=== PATIENT | male | born 1950 | race Caucasian/White ===

== ENCOUNTER 2024-02-10 12:12 | Inpatient (IN) ==
--- NOTE | 2024-02-10 12:56 | Emergency Department Note ---
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 He notes today he was sitting on the couch and noticed that his right leg was cool, cold and painful. He notes intermittently with exertion he has worsening pain. He is a smoker and has done this for over 50 years. He denies any headache or change in vision. No chest pain or shortness of breath. No nausea, vomiting, or diarrhea. No dysuria, urgency, or frequency. No other exacerbating or remitting factors. ADDITIONAL HISTORY OBTAINED: Per HPI Chronic Medical/Social Conditions Affecting Care: Per HPI PAST MEDICAL HISTORY:See Below PAST SURGICAL HISTORY:See Below FAMILY HISTORY:See Below SOCIAL HISTORY:See Below HOME MEDICATIONS:See Below ALLERGIES:See Below VITALS:See Below PHYSICAL EXAMINATION: GENERAL: Sitting up in bed, alert, well appearing, well nourished, no distress, non-toxic EYE EXAM: normal conjunctiva. OROPHARYNX: no exudate, no erythema, lips, buccal mucosa, and tongue normal and mucous membranes are moist NECK: supple, no nuchal rigidity, no adenopathy, non-tender LUNGS: Clear to auscultation. Normal chest wall mechanics HEART: no murmurs, S1 normal and S2 normal ABDOMEN: abdomen soft, non-tender, normo-active bowel sounds, no masses, no rebound or guarding. UPPER EXTREMITIES: upper extremities are grossly normal. LOWER EXTREMITIES: Right lower extremity is pale, cold. Unable to appreciate DP or PT. Gross sensation is intact. Calves are equal bilateral NEURO EXAM: Normal sensorium, cranial nerves II-XII grossly intact, normal speech, no gross weakness of arms, no gross weakness of legs. MEDICAL DECISION MAKING: Patient is a 73-year-old male who presents the ER for right leg pain. His leg is cooler and paler than his left. Unable to appreciate DP and PT. Patient was sent emergently for a arterial ultrasound as well as a venous duplex. He has a popliteal artery occlusion. This was discussed with Aurea from vascular surgery. She agreed with heparin drip and bolus and admission to the hospitalist and they will evaluate the patient. Patient was given morphine. He was updated bedside. He was placed on the heparin drip bolus. He denied any bleeding risk factors. He was discussed with the hospitalist admitted for further workup Consults/Care Managements Discussions: Per [facility] Triage Nursing notes reviewed. Limited review of prior medical records performed Vital Signs: reviewed and remarkable for no significant abnormalities Differential diagnosis: DVT, musculoskeletal, infection, joint effusion, trauma, lymphedema, idiopathic, CHF, as well as other pathologies. ER treatment provided: See below Diagnostics interpreted by me include EKG and cardiac monitoring as listed below: -Cardiac Monitoring: An order was placed for continuous cardiac monitoring. The monitor shows a rate of 92 with sinus rhythm. -EC -Laboratory studies:Interpreted by me as stated above in MDM and shown below. Imaging studies: Xrays: As interpreted by me:none CTs show: none Arterial ultrasound shows a right popliteal artery occlusion DVT was Procedures:none Critical Care: I have personally spent 32 minutes of critical care time in the direct management of this patient. This includes bedside care, interpretation of diagnostic studies, and testing, discussion with consultants, patient, and family members, and other required patient management activities. This [] minutes is in excess of all separately billable procedures. Past Med/Surg History Medical History HLD (hyperlipidemia) HTN (hypertension) Prostate cancer Diagnosed 12/15/18 - [place] 3+4 Lyme arthritis of knee History of Lyme disease Osteoarthritis of left knee Tobacco use disorder Gastroesophageal reflux Surgical History History of cataract surgery 06/2018 Family History Mother , Passed age 52 in MVA No problems noted. Father , Passed age 68 of unknown No problems noted. Brother , Passed age 23 of MVA No problems noted. Brother No problems noted. Brother No problems noted. Brother No problems noted. Sister , Passed in 40's of complication from MVA No problems noted. Sister No problems noted. Sister No problems noted. Sister No problems noted. Sister No problems noted. Sister No problems noted. Son No problems noted. Son No problems noted. 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 Other Information That Helps Us Care for You: No Feels Safe at Home: Yes Safety Concerns: Feels Safe At This Time caffeine: Yes (30oz coffee/day ) during the past year weight has: remained stable Assistive Devices: Denture - Upper Allergies Allergies Allergy/AdvReac Type Severity Reaction Status Date / Time No Known Allergies Allergy Mild Verified 02/10/24 14:27 Home Meds Home Medications Medication Instructions Recorded Confirmed amlodipine 10 mg tablet 10 mg PO DAILY 12/02/21 02/10/24 losartan 50 mg tablet 100 mg PO DAILY 12/02/21 02/10/24 omeprazole 20 mg tablet,delayed 20 mg PO DAILY 12/02/21 02/10/24 release cholecalciferol (vitamin D3) 25 25 mcg PO DAILY 02/10/24 02/10/24 mcg (1,000 unit) chewable tablet (Vitamin D3) cyanocobalamin (vitamin B-12) 1,000 mcg PO DAILY 02/10/24 02/10/24 1,000 mcg tablet (Vitamin B-12) Results & Data (ED) Vital Signs Vital Signs - 24 hr 02/10/24 12:18 02/10/24 14:47 Temperature 36.5 C Temperature Source Temporal Artery Scan Pulse Rate 97 H Pulse Rate [Apical] 83 Pulse Rhythm Regular Respiratory Rate 20 18 Respiratory Effort / Characteristics Non-Labored Spontaneous Respiratory Depth Normal Blood Pressure 136/75 Blood Pressure [Right Arm] 154/84 H Blood Pressure Mean 95 Blood Pressure Mean [Right Arm] 107 Pulse Oximetry 97 94 Oxygen Delivery Method Room Air Sepsis Recent Fever Within 48 Hours No Sepsis New/Unexplained Change in Mental Status No Sepsis Action Taken by Nursing No Action Required Laboratory Data 02/10/24 12:50 02/10/24 12:50 Lab Results 02/10/24 02/10/24 Range/Units 12:50 13:56 WBC 9.32 (4.8-10.8) K/ul RBC 5.13 (4.70-6.10) M/uL Hgb 15.0 (14.0-18.0) g/dl Hct 44.4 (42.0-52.0) % MCV 86.5 (80.0-100.0) fL MCH 29.2 (25.0-34.0) pg MCHC 33.8 (32.0-36.0) g/dL RDW Std Deviation 42.8 (36.4-46.3) fL RDW Coeff of Kristen 13.6 (11.5-14.5) % Plt Count 271 (130-400) K/uL MPV 10.4 (9.4-12.4) fL Immature Gran % (Auto) 0.3 % Neut % (Auto) 65.9 % Lymph % (Auto) 23.5 % [place] % (Auto) 7.5 % Eos % (Auto) 1.6 % Baso % (Auto) 1.2 % Neut # (Auto) 6.14 (1.40-6.50) K/uL Lymph # (Auto) 2.19 (1.20-3.40) K/uL [place] # (Auto) 0.70 H (0.11-0.59) K/uL Eos # (Auto) 0.15 (0.00-0.50) K/uL Baso # (Auto) 0.11 (0.00-0.20) K/uL Immature Gran # (Auto) 0.03 (0.01-0.20) K/uL PT 11.9 (9.0-12.0) Seconds INR 1.1 (0.9-1.1) Sodium 139 (136-145) mmol/L Potassium 4.4 (3.5-5.1) mmol/L Chloride 106 (98-107) mmol/L Carbon Dioxide 29 (21-32) mmol/L Anion Gap 4 (3-11) BUN 23 (6-23) mg/dl Creatinine 1.03 (0.6-1.4) mg/dl Est Cr Clr Drug Dosing 65.1 ml/min Est GFR ( Amer) 84.3 ml/min Est GFR (Non-Af Amer) 72.7 ml/min BUN/Creatinine Ratio 22.3 H (10-20) Glucose 98 (70-99(Fasting)) mg/dl Calcium 9.7 (8.6-10.3) mg/dl Total Bilirubin 0.8 (0.2-1.0) mg/dl AST 14 (13-39) U/L ALT 13 (7-52) U/L Alkaline Phosphatase 103 (34-104) U/L Total Protein 7.4 (6.0-8.3) gm/dl Albumin 4.3 (3.4-5.0) gm/dl Globulin 3.1 (2.5-4.0) gm/dl Albumin/Globulin Ratio 1.4 (0.9-2) Administered Medications Atorvastatin Calcium (Atorvastatin 40 Mg Tab) 40 mg PO QAM [facility] Stop: 03/11/24 15:29 Last Admin: 02/10/24 17:12 Dose: 40 mg Documented By: DTT Heparin Sodium/Dextrose (Heparin Sodium/Dextrose) 25,000 units in 500 mls @ 25 mls/hr IV .Q20H JHONNY; Protocol Stop: 03/11/24 14:29 Last Admin: 02/10/24 15:44 Dose: 1,250 units/hr, 25 mls/hr Documented By: ALISON Co-signed By: JAMES Discontinued Medications Aspirin (Aspirin 81 Mg Ectab) 81 mg PO NOW STA Stop: 02/10/24 15:46 Last Admin: 02/10/24 17:12 Dose: 81 mg Documented By: DTT Heparin Sodium (Porcine) (Heparin Sod (Porcine) 1000 Unit/Ml) 6,000 units IV NOW ONE Stop: 02/10/24 14:46 Last Admin: 02/10/24 15:44 Dose: 6,000 units Documented By: ALISON Co-signed By: JAMES Morphine Sulfate (Morphine Sulfate 4 Mg/Ml 1 Ml Carp\Vial) 4 mg IV NOW STA Stop: 02/10/24 14:15 Last Admin: 02/10/24 15:04 Dose: Not Given Documented By: NRB Imaging Data Radiologist's Impression: Duplex Scan Lower Extremity Artery 02/10/24 12:48 US arterial duplex LE RT HISTORY: 73 years-old Male ? clot peripheral arterial disease with lower extremity pain COMPARISON: Duplex venous Doppler study of same day TECHNIQUE: Multiple real-time sonographic images of the right lower remedy arterial structures were obtained assessing grayscale appearance, color and spectral flow FINDINGS: There is at least moderate atherosclerosis. Patent mostly biphasic waveforms of the thigh. There is occlusion of the mid to distal aspect of the popliteal artery. There is monophasic waveforms within the patent posterior tibial, anterior tibial, peroneal and dorsalis pedis arteries with areas of spectral broadening and diminished flow with peak systolic velocities in the peroneal artery measuring 7 cm/s. IMPRESSION: 1. Atherosclerosis with age-indeterminate occlusion of the right popliteal artery. 2. Blunted monophasic waveforms within the lower leg arteries. ACT 112: Negative or not required by law. The above report was generated using voice recognition software. It may contain grammatical, syntax or spelling errors. Electronically signed by: James March M.D. 02/10/2024 1:56 PM Venous Doppler Study 02/10/24 12:48 RIGHT LOWER EXTREMITY VENOUS DOPPLER HISTORY: Right leg pain. COMPARISON STUDY: None. FINDINGS: There is normal compressibility, flow, and augmentation within the right lower extremity deep venous system. IMPRESSION: No DVT within the right lower extremity ACT 112: Negative or not required by law. Electronically signed by: Anil Medellin M.D. 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
[2024-02-10 13:17] LABS: Basophils # (auto) 0.11 K/uL (0.00-0.20); Basophils % (auto) 1.2 %; Eosinophils # (auto) 0.15 K/uL (0.00-0.50); Eosinophils % (auto) 1.6 %; Hematocrit (blood only) 44.4 % (42.0-52.0); Immature Granulocytes # (auto) 0.03 K/uL (0.01-0.20); Immature Granulocytes % (auto) 0.3 %; Lymphocytes # (auto) 2.19 K/uL (1.20-3.40); Lymphocytes % (auto) 23.5 %; Mean Corpuscular Hemoglobin 29.2 pg (25.0-34.0); Mean Corpuscular Hgb Conc 33.8 g/dL (32.0-36.0); Mean Corpuscular Volume 86.5 fL (80.0-100.0); Mean Platelet Volume 10.4 fL (9.4-12.4); Monocytes % (auto) 7.5 %; Neutrophils # (auto) 6.14 K/uL (1.40-6.50); Neutrophils % (auto) 65.9 %; Platelet Count 271 K/uL (130-400); RDW Coefficient of Variation 13.6 % (11.5-14.5); RDW Standard Deviation 42.8 fL (36.4-46.3); Red Blood Count 5.13 M/uL (4.70-6.10); White Blood Count 9.32 K/ul (4.8-10.8)
[2024-02-10 13:46] LABS: Albumin Globulin Ratio 1.4 (0.9-2); Albumin Level 4.3 gm/dl (3.4-5.0); BUN Creatinine Ratio 22.3 (10-20); Bilirubin,Total 0.8 mg/dl (0.2-1.0); Calcium 9.7 mg/dl (8.6-10.3); Creatinine Clr Calc Pharmacy 65.1 ml/min; Est GFR (African American) 84.3 ml/min; Est GFR (Non-African American) 72.7 ml/min; Globulin 3.1 gm/dl (2.5-4.0); Potassium 4.4 mmol/L (3.5-5.1); Total Protein 7.4 gm/dl (6.0-8.3)
--- NOTE | 2024-02-10 13:49 | Ultrasound Report ---
RIGHT LOWER EXTREMITY VENOUS DOPPLER HISTORY: Right leg pain. COMPARISON STUDY: None. FINDINGS: There is normal compressibility, flow, and augmentation within the right lower extremity de ep venous system. IMPRESSION: No DVT within the right lower extremity ACT 112: Negative or not required by law. Electronically signed by: Anil Medellin M.D. 02/10/2024 1:48 PM
--- NOTE | 2024-02-10 13:58 | Ultrasound Report ---
US arterial duplex LE RT HISTORY: 73 years-old Male ? clot peripheral arterial disease with lower extremity pain COMPARISON: Duplex venous Doppler study of same day TECHNIQUE: Multiple real-time sonographic images of the right lower remedy arterial structures were o btained assessing grayscale appearance, color and spectral flow FINDINGS: There is at least moderate atherosclerosis. Patent mostly biphasic waveforms of the thigh. There is o cclusion of the mid to distal aspect of the popliteal artery. There is monophasic waveforms within th e patent posterior tibial, anterior tibial, peroneal and dorsalis pedis arteries with areas of spectr al broadening and diminished flow with peak systolic velocities in the peroneal artery measuring 7 cm /s. IMPRESSION: 1. Atherosclerosis with age-indeterminate occlusion of the right popliteal artery. 2. Blunted monophasic waveforms within the lower leg arteries. ACT 112: Negative or not required by law. The above report was generated using voice recognition software. It may contain grammatical, syntax o r spelling errors. Electronically signed by: James March M.D. 02/10/2024 1:56 PM
[2024-02-10] MEDS ORDERED: Heparin IV Adult Wt-Based Standard w/ INITIAL Bolus Protocol IV STA (14:13)
[2024-02-10] MEDS ORDERED: HEPARIN SOD (PORCINE) 1000 UNIT/ML IV ONE (14:29)
[2024-02-10 14:44] LABS: INR 1.1 (0.9-1.1); Prothrombin Time 11.9 Seconds (9.0-12.0)
[2024-02-10] MEDS ORDERED: POLYETHYLENE (MIRALAX) 17 GM PACK PO PRN (14:53)
[2024-02-10] MEDS ORDERED: ALUMINUM/MAGNESIUM SUSP 30 ML UDC PO PRN (14:53)
[2024-02-10] MEDS ORDERED: ONDANSETRON INJ 2 MG/ML 2 ML VIAL IV PRN (14:53)
[2024-02-10] MEDS ORDERED: ACETAMINOPHEN 325 MG TAB PO PRN (14:53)
[2024-02-10] MEDS ORDERED: MAGNESIUM HYDROXIDE SUSP 30 ML UDC PO PRN (14:53)
[2024-02-10] MEDS: MoRPHine SULFATE 4 MG/ML 1 ML CARP\\VIAL IV STA (15:04)
--- NOTE | 2024-02-10 15:05 | History & Physical Report ---
Date of Service February 10, 2024 Assessment & Plan (1) HTN (hypertension): (2) HLD (hyperlipidemia): (3) Prostate cancer: (4) Tobacco use disorder: (5) Gastroesophageal reflux: Plan Mr. Heard is a 73 year old male that presents to the ED with R leg pain that started on Saturday. He reportedly was having pallor and coolness in the right lower extremity. Today he has complaints including neuropathy as well. No ambulation difficulty. Reports tightness in the back of his right calf. Does not take any antilipid lowering agents. Is compliant with his blood pressure medications. He has never been diagnosed with atherosclerosis before. He is generally otherwise healthy. No recent surgeries. No leukocytosis, no erythema or warmth at site. Reports neuropathic symptoms on his right foot. Pt smokes 1/2 ppd cigarettes. Duplex scan of the lower arteries indicated Atherosclerosis with age- indeterminate occlusion of the right popliteal artery and blunted monophasic waveforms within the lower leg arteries. Venous duplex US was negative for DVT. Pt will be admitted for further evaluation and management of his PAD with popliteal arterial occlusion. Heparin gtt with bolus initiated. Will add Lipitor and a daily baby aspirin, and will check fasting lipid panel in AM along with NPO after MN. PAD: Arterial Duplex Scan revealed Atherosclerosis with age-indeterminate occlusion of the right popliteal artery. Blunted monophasic waveforms within the lower leg arteries. Venous Duplex scan negative for DVT Heparin gtt with bolus started in ED; continue pending vascular consultation (+) neuropathy of R foot Venous Duplex scan Negative No leukocytosis, no erythema, no warmth, no swelling (+) pedal pulse; cool to touch; nursing to obtain doppler Ok for diet now, NPO after midnight No previously on a statin; started on Lipitor 40 mg and adjust based on lipid panel in AM Started on daily baby ASA for anti-plt coverage Vascular Surgery consulted HTN: pHTN: Chronic Takes losartan and amlodipine; continue Most recent ECHO 01/02/24: EF 60-64%, moderate TR, moderate pHTN, LV wall motion normal. COPD: Tobacco use: Chronic Smoking 1/2 pack cigarettes per day smoking cessation recommended H/O Prostate CA: Chronic Dx: 2019 S/P Lupron therapy x 18 months + Radx Follows with Urology; no prostatectomy Last PSA 0.18 Disposition: PCP: Dr. Doberstein Code Status: Full Code VTE Prophylaxis: On Heparin gtt I spent a total of 88 minutes coordinating, documenting, and providing care for this patient excluding time spent in the performance of separately billed services. All of the aforementioned completed while collaborating with the assigned attending physician for a full treatment plan. Please see their addendum for further details. History of Present Illness Chief Complaint: R leg pain Primary Care Provider: Elmer Durbin MD Mr. Heard is a 73 year old male that presents to the ED with R leg pain that started on Saturday. He reportedly was having pallor and coolness in the right lower extremity. Today he has complaints including neuropathy as well. No ambulation difficulty. Reports tightness in the back of his right calf. Does not take any antilipid lowering agents. Is compliant with his blood pressure medications. He has never been diagnosed with atherosclerosis before. PMH includes: HTN, COPD, prostate CA, and GERD. He is generally otherwise healthy. No recent surgeries. No leukocytosis, no erythema or warmth at site. Reports neuropathic symptoms on his right foot. Pt smokes 1/2 ppd cigarettes. Smoking cessation recommended. No alcohol or recreational drug concerns. Duplex scan of the lower arteries indicated Atherosclerosis with age- indeterminate occlusion of the right popliteal artery and blunted monophasic waveforms within the lower leg arteries. Venous duplex US was negative for DVT. ED physician reached out to vascular surgery who suggested a Heparin gtt with bolus that was initiated in the ED. Pt denies CAM, dizziness, lightheadedness, chest pain, SOB, abdominal pain or tenderness, visual or auditory changes, N/V/D, recent falls or trauma. Pt will be admitted for further evaluation and management of his PAD with popliteal arterial occlusion. Will add Lipitor and a daily baby aspirin, and will check fasting lipid panel in AM along with NPO after MN. Allergies Allergy/AdvReac Type Severity Reaction Status Date / Time No Known Allergies Allergy Mild Verified 02/10/24 14:27 Home Medications Medication Instructions Recorded Confirmed Type amlodipine 10 mg tablet 10 mg PO DAILY 12/02/21 02/10/24 History losartan 50 mg tablet 100 mg PO DAILY 12/02/21 02/10/24 History omeprazole 20 mg tablet,delayed 20 mg PO DAILY 12/02/21 02/10/24 History release cholecalciferol (vitamin D3) 25 25 mcg PO DAILY 02/10/24 02/10/24 History mcg (1,000 unit) chewable tablet (Vitamin D3) cyanocobalamin (vitamin B-12) 1,000 mcg PO DAILY 02/10/24 02/10/24 History 1,000 mcg tablet (Vitamin B-12) Past Med/Surg History Medical History HLD (hyperlipidemia) HTN (hypertension) Prostate cancer Diagnosed 12/15/18 - [facility] 3+4 Lyme arthritis of knee History of Lyme disease Osteoarthritis of left knee Tobacco use disorder Gastroesophageal reflux Surgical History History of cataract surgery 06/2018 Family History Mother , Passed age 52 in MVA No problems noted. Father , Passed age 68 of unknown No problems noted. Brother , Passed age 23 of MVA No problems noted. Brother No problems noted. Brother No problems noted. Brother No problems noted. Sister , Passed in 40's of complication from MVA No problems noted. Sister No problems noted. Sister No problems noted. Sister No problems noted. Sister No problems noted. Sister No problems noted. Son No problems noted. Son No problems noted. Other No pertinent family history Social History Smoking Status: Current every day smoker Tobacco Type: Cigarettes Cigarettes Per Day: 1 pack/day; Do You Dip or Chew Tobacco: No; Hx Alcohol Use: No Hx Substance Use: No Preferred Language: Malaysian Visual Impairment: No Limitations Hearing Ability: Hard of Hearing Beliefs That Will Affect Care: None marital status: Single Current Living Situation: Alone current occupational status: retired current occupation: Retired [employer] Feels Safe at Home: Yes caffeine: Yes (30oz coffee/day ) during the past year weight has: remained stable Review of Systems Review of Systems: Neuro: (-) Falls, trauma, slurred speech HEENT: (-) CAM, dizziness, dysphagia, visual or auditory changes CV: (-) CP, palpitations, swelling Resp: (-) SOB GI: (-) appetite changes, N/V/D, bowel changes : (-) urinary changes Skin: (-) rashes (+) R posterior calf pain Psych: (-) anxiety, depression Physical Exam Physical Exam: Neuro: AAOx4. HEENT: head normocephalic, moist mucus membranes CV: RLE non-palpable pedal pulse Resp: on RA. Skin: pallor. Psych: euthymic mood See Dr. Bullard's addendum for more in depth Physical Examination findings Results & Data Results & Data Vital Signs (Past 12 Hours) Vital Signs Temp Pulse Pulse Resp BP BP Pulse Ox 02/10/24 14:47 83 18 154/84 H 94 02/10/24 12:18 36.5 C 97 H 20 136/75 97 O2 Del Method 02/10/24 14:47 02/10/24 12:18 Room Air Laboratory Results Short CBC 02/10/24 Range/Units 12:50 WBC 9.32 (4.8-10.8) K/ul Hgb 15.0 (14.0-18.0) g/dl Hct 44.4 (42.0-52.0) % Plt Count 271 (130-400) K/uL BMP 02/10/24 12:50 Sodium 139 Potassium 4.4 Chloride 106 Carbon Dioxide 29 BUN 23 Creatinine 1.03 Glucose 98 Calcium 9.7 Liver Function 02/10/24 Range/Units 12:50 Total Bilirubin 0.8 (0.2-1.0) mg/dl AST 14 (13-39) U/L ALT 13 (7-52) U/L Alkaline Phosphatase 103 (34-104) U/L Albumin 4.3 (3.4-5.0) gm/dl Diagnostic Findings Duplex Scan Lower Extremity Artery 02/10/24 12:48 US arterial duplex LE RT HISTORY: 73 years-old Male ? clot peripheral arterial disease with lower extremity pain COMPARISON: Duplex venous Doppler study of same day TECHNIQUE: Multiple real-time sonographic images of the right lower remedy arterial structures were obtained assessing grayscale appearance, color and spectral flow FINDINGS: There is at least moderate atherosclerosis. Patent mostly biphasic waveforms of the thigh. There is occlusion of the mid to distal aspect of the popliteal artery. There is monophasic waveforms within the patent posterior tibial, anterior tibial, peroneal and dorsalis pedis arteries with areas of spectral broadening and diminished flow with peak systolic velocities in the peroneal artery measuring 7 cm/s. IMPRESSION: 1. Atherosclerosis with age-indeterminate occlusion of the right popliteal artery. 2. Blunted monophasic waveforms within the lower leg arteries. ACT 112: Negative or not required by law. The above report was generated using voice recognition software. It may contain grammatical, syntax or spelling errors. Electronically signed by: James Marhc M.D. 02/10/2024 1:56 PM Venous Doppler Study 02/10/24 12:48 RIGHT LOWER EXTREMITY VENOUS DOPPLER HISTORY: Right leg pain. COMPARISON STUDY: None. FINDINGS: There is normal compressibility, flow, and augmentation within the right lower extremity deep venous system. IMPRESSION: No DVT within the right lower extremity ACT 112: Negative or not required by law. Electronically signed by: Anil Medellin M.D. 02/10/2024 1:48 PM Code Status & VTE Plan Code Status Full Code in the event of cardiac or respiratory arrest VTE Prophylaxis Plan VTE Prophylaxis will be ordered: Yes Supervising Physician Co-Signing Physician Notes Patient seen and examined independently. Discussed with above provider Patient is a 73-year-old male with past medical history of hypertension, chronic tobacco use, prostate cancer status postradiation who presents with pain in his right foot. No history of previous PAD or CAD. CBC, CMP unremarkable On physical examination; Constitutional: Alert oriented x 3; not in distress. Respiratory: normal respiratory effort, lungs clear to auscultation, no wheeze, rales, rhonchi. Normal insp/exp effort, no accessory muscle use Cardiovascular: RRR, no murmur, no edema Vessels: no JVD or carotid bruit Chest: normal inspection of chest Abdomen: normal bowel sounds, soft, nontender, no hepatosplenomegaly Musculoskeletal: no cyanosis or clubbing, extremities motor strength 5/5. Dorsalis pedis on the left palpable; unable to appreciate dorsalis pedis pulse on her right foot. No color changes. Skin: no rashes, warm and dry normal turgor Neurologic: PERRL, EOMI, accommodation nl, no face palsy, no dysarthria CN's II- XI intact bilaterally and moves all extremities Psychiatric: A+Ox3, euthymic affect Assessment/plan Peripheral artery disease Atherosclerosis with age-indeterminate occlusion of the right popliteal artery. Risk factor include hypertension, tobacco use Duplex negative for DVT Duplex scan of artery shows atherosclerosis indeterminant occlusion of right popliteal artery ED physician discussed with Dr. Fox from vascular surgery; recommend heparin. Possible intervention tomorrow a.m. Started on aspirin, statin Chronic conditions; continue home meds for hypertension I have reviewed the advanced practitioner's documentation, and I agree with, and take responsibility for the plan of care I spent a total of 30 minutes coordinating, documenting, and providing care for this patient excluding time spent in the performance of separately billed services. All of the aforementioned completed while collaborating with the assigned advanced practitioner for a full treatment plan Please note the above document was generated using voice recognition software. It may contain grammatical, syntax or spelling errors. Any formal questions or concerns about the content, text or information contained within the body of this dictation should be directly addressed to the provider for clarification
[2024-02-10] MEDS: HEPARIN SODIUM/DEXTROSE 25,000 UNITS/500 ML BAG IV SCH (15:44)
[2024-02-10] MEDS: HEPARIN SOD (PORCINE) 1000 UNIT/ML IV ONE (15:44)
[2024-02-10] MEDS: ATORVASTATIN 40 MG TAB PO SCH (17:12)
[2024-02-10] MEDS: ASPIRIN 81 MG ECTAB PO STA (17:12)
[2024-02-10 22:43] LABS: ANTI-Xa, UFH(UnfractionatedHep 0.93 IU/ml (0.3-0.7)
--- OUTSIDE RECORDS SUMMARY | 2024-02-10 22:55 | External Medical Summary ---
Author Name Unknown Address Unknown Organization [id number] [place] [address] Laboratory Report Ordering Provider Test Date Status AVELINO DIALLO 11/01/2023 10:20:22 Final Observation Date Value Abnormality Reference (Units ) Status Magnesium 11/01/2023 10:20:22 1.5 1.5-2.6 (m g/dL) Final Performing Location [facility] [place] [place] [address]
--- OUTSIDE RECORDS SUMMARY | 2024-02-10 22:55 | External Medical Summary | Summary of Care ---
Author Name Unknown Organization [facility] Address [address] [place] [address] Phone [phone] Care Team Providers Care Sole Leveler Name Role Phone Elmer Durbin MD Primary Care Provider + Reason for Visit * Reason Onset Date Comments Test Results Lab 11/04/2023 Encounter Details Date Type Department Care Team (Late st Contact Info) Description 11/04/2023 Telephone General Internal Medicine [facility] [place] [address] [facility] [place] [address] [facility] [address] [facility] [id number] Test Results Lab Allergies No known active allergiesdocumented as of this encounter (statuses as of 11/04/2023) Medications Medication Sig Dispensed Refills Start Date End Date Status omeprazole (PRILOSEC) 20 MG CPDR Take 1 Capsule by mouth in the morning. 0 Active Zoster Vac Recomb Adjuvanted 50 MCG/0.5ML Intramuscular Suspension Reconstituted (Shingrix)Indications: Need for shingles vaccine Inject 0.5 mL into a large muscle now and repeat dose in 60 to 180 days 1 Each 1 03/30/2022 Active Losartan Potassium 100 MG Oral Tablet (Cozaar) Take 1 Tablet by mouth in the morning. 90 Tablet 3 12/04/2022 Active D3 5000 125 MCG (5000 UT) Oral Capsule (Cholecalciferol)Indic ations:Vitamin D insufficiency Take 1 Capsule by mouth in the morning. 90 Capsule 0 12/04/2022 Active Vitamin B12 1000 MCG Oral Tablet Extended Release Take 1,000 mcg by mouth in the morning. 0 Active Magnesium 400 MG Oral Tablet Take 400 mg by mouth. 0 Active amLODIPine Besylate 10 MG Oral Tablet (Norvasc)Indications:H ypertension goal BP (blood pressure) < 140/90 TAKE 1 TABLET BY MOUTH EVERY MORNING 90 Tablet 3 06/03/2023 Active Rosuvastatin Calcium 5 MG Oral Tablet (Crestor)Indications:M ixed hyperlipidemia TAKE 1 TABLET BY MOUTH EVERY MORNING 90 Tablet 3 06/03/2023 Active documented as of this encounter (statuses as of 11/04/2023) Active Problems Problem Noted Date Diagnosed Date Prediabetes 11/03/2023 Gallstone 04/17/2023 Nonrheumatic tricuspid valve regurgitation 10/01 COPD, mild 03/30/2022 PHT (pulmonary hypertension) 10/06/2021 Vitamin D insufficiency 03/26/2021 Radiation cystitis 12/27/2020 Mixed hyperlipidemia 10/28/2020 Lung nodule 10/27/2020 Hypertension goal BP (blood pressure) < 140/90 0 04/29/2019 Prostate cancer 02/25/2019 History of Lyme disease 05/30/2018 Osteoarthritis of left knee 04/01/2018 Gastroesophageal reflux disease without esophagi tis 03/31/2018 Tobacco use disorder 03/31/2018 documented as of this encounter (statuses as of 11/04/2023) Resolved Problems Problem Noted Date Diagnosed Date Resolved Date Centrilobular emphysema 10/06/202110/21 Lyme arthritis of knee 06/04/201802/25 documented as of this encounter (statuses as of 11/04/2023) Immunizations Name Administration Dates Next Due Covid-19 Ad26, Single Dose (Joo/J&J) 021 Pneumococcal Conjugate Vacc, 13 Valent (Prevnar) 05/30/2018 TDAP (age 11 and older)(Adacel) 10/01/2006 documented as of this encounter Social History Tobacco Use Types Packs/Day Years Used Date Smoking Tobacco: Every Day Cigarettes 0.8 47 Smokeless Tobacco: Never Alcohol Use Standard Drinks/Week Comments No 0 (1 standard drink = 0.6 oz pur e alcohol) Quit in August of 2008 PHQ-2 Answer Date Recorded PHQ Adult Total Score 0 11/01/2023 Hunger Vital Sign Answer Date Recorded Within the past 12 months, y ou worried that your food would run out before you got the money to buy more. Never true 10/01/20 22 Within the past 12 months, t he food you bought just didn't last and you didn't have money to get more. Never true 10/01/2022 Sex and Gender Information Value Date Recorded Sex Assigned at Male 02/25/2019 11:09 AM EDT Gender Identity Male 02/25/2019 11:09 AM EDT Sexual Orientation Straight 02/25/2019 11 :09 AM EDT Job Start Date Occupation Industry Not on file Not on file Not on file documented as of this encounter Miscellaneous Notes * Telephone Encounter - Esperanza Eagle LPN - 11/04/2023 10:25 AM EST Patient aware and verbalized understanding, will consider B12 injections after labs in 3 months. Patient states that he is NOT taking vitamin D3 and will go to the store today and start taking, will wait to increase dose after future lab work as well. Esperanza Eagle LPN * Telephone Encounter - Esperanza Eagle LPN - 11/04/2023 10:20 AM EST ----- Message from Elmer Durbin MD sent at 11/03/2023 12:36 PM EST ----- Vit d is very low, please make sure he is taking 5000 IU vit d3 as on med list, this is very important!. If so, switch to 50K units weekly instead, if not resume brittany. This is otc, add to med list once aware. Recheck labs 3 months to follow. Vit b12 normal but low end, please make sure taking vit b12 as on med list, if so, would consider IM injections instead Pth is up, but wonder if from low vit d, pls do as above, will recheck labs 3 months A1c shows pre-DM, limit sweets, breads, pastas, excessive juices, soda to help prevent DM down the line Psa stable pls follow up with urology for h/o prostate cancer! documented in this encounter Plan of Treatment Upcoming Encounters Date Type Department Care Team (Late st Contact Info) Description 01/02/2024 7:15 AM EDT Cardiac Studies Cardiac Studies, [facility] [address] [facility] [place] [address] 05/08/2024 8:40 AM EDT Office Visit General Internal Medicine [facility] [address] [facility] [place] [address] Elmer Durbin MD [address] [facility] [place] [address] 05/20/2024 8:45 AM EDT Office Visit Urology, [facility] [address] [facility] [place] [address] Patric Hernandez MD [address] [address] [place] [address] Health Maintenance Due Date Last Done Comments Cologuard 1997 Colonoscopy 1997 Colorectal Cancer Screening 1997 Fecal Occult Blood Test 1997 Sigmoidoscopy 1997 Zoster Vaccines (1 of 2) 2002 DTaP,Tdap,and Td Vaccines (2 - Td or Tdap) 10/01/2016 10/01/2006 Pneumococcal Vaccine: 65+ Years (2 - PPSV23 or PCV20) 07/25/2018 05/30/2018 *COPD SEVERITY VERIFIED BY PFT 10/10/2021 DISCUSS TOBACCO CESSATION (REFER TO SMARTSET #3291) 10/06/2022 10/06/2021 COVID-19 Vaccine (2 - season) 2023 03/08/2021 Influenza Vaccine (FLU shot) (#1) 2023 Depression Screening 11/01/2024 11/01/2023 GFR 11/01/2024 11/01/2023, 0612/2022, 10/01/2022, Additional history exists HbA1c 11/01/2024 11/01/2023 O2 ASSESSMENT COMPLETED IN PAST YEAR FOR COPD 11/01/2024 11/01/2023 Albumin/Creatinine Ratio 10/01/2025 10/01/2022, 05/21 Lipid Panel 04/02/2028 04/02/2023, 03/22, 01/25/2021, Additional history exists AAA Screening Completed 04/03/2022 Alpha-1 Antitrypsin Completed 04/03/2022, GARDASIL-HPV IMMUNIZATION SERIES Aged Out No longer eligible based on patient's age to complete this topic Hepatitis B Aged Out No longer eligi ble based on patient's age to complete this topic MENINGOCOCCAL (MENACTRA/MENVEO) Aged Out No longer eligible based on patient's age to complete this topic documented as of this encounter Medical Devices Implanted Type Area Patient Admitting Representative Device Identifier Shelf Expiration Date Model / Serial / Lot Lens Intraoc 23.5 - [id number] - [id number] Implanted:Qty: 1 on 06/19/2018 by Bennett Caro MD at OR [facility] Right: Eye [employer] 11/20/2022 [id number] / [id number] / [id number] Lens Intraoc 23.5 - [id number] - [id number] Implanted:Qty: 1 on 07/01/2018 by Bennett Caro MD at OR [facility] Left: Eye [employer] 12/18/2022 [id number] / [id number] / [id number] documented as of this encounter Advance Directives Latest Code Status on File Code Status Date Activated Date Inactivated Comments Full Code 07/01/2018 10:24 AM 07/01/2018 4:41 PM This order reflects the patients wishes and were consensually agreed upon. Code Status History Code Status Date Activated Date Inactivated Comments Full Code 06/19/2018 10:10 AM 06/19/2018 4:18 PM This order reflects the patients wishes and were consensually agreed upon. Care Teams Sole Leveler Relationship Specialty Start Date End Date Elmer Durbin MD [address] [place] [address], [place] [address] PCP - General Internal Medicine 12/15/18 documented as of this encounter
--- OUTSIDE RECORDS SUMMARY | 2024-02-10 22:55 | External Medical Summary | Summary of Care ---
Author Name Unknown Organization [facility] Address [address] [place] [address] Phone [phone] Care Team Providers Care Molding And Trim Installer Name Role Phone Elmer Durbin MD Primary Care Provider + Reason for Visit * Reason Onset Date Comments Advice 01/10/2024 Encounter Details Date Type Department Care Team (Late st Contact Info) Description 01/10/2024 Telephone Access Center, [place] [address] [facility] *DO NOT REMOVE THIS DEPARTMENT* [place] [address] Services, Scheduling [address] [place] [address] Advice Allergies No known active allergiesdocumented as of this encounter (statuses as of 01/10/2024) Medications Medication Sig Dispensed Refills Start Date End Date Status omeprazole (PRILOSEC) 20 MG CPDR Take 1 Capsule by mouth in the morning. 0 Active Zoster Vac Recomb Adjuvanted 50 MCG/0.5ML Intramuscular Suspension Reconstituted (Shingrix)Indications: Need for shingles vaccine Inject 0.5 mL into a large muscle now and repeat dose in 60 to 180 days 1 Each 1 03/30/2022 Active D3 5000 125 MCG (5000 UT) [...] EVERY MORNING 90 Tablet 3 06/03/2023 Active Losartan Potassium 100 MG Oral Tablet (Cozaar) TAKE ONE TABLET BY MOUTH IN THE MORNING 90 Tablet 3 11/25/2023 Active documented as of this encounter (statuses as of 01/10/2024) Active Problems Problem Noted Date Diagnosed Date COPD, group A, by GOLD 2017 classification 12/02 Overview: Per COPD GOLD Classification Prediabetes 11/03/2023 Gallstone 04/17/2023 Nonrheumatic tricuspid valve regurgitation 10/01 PHT (pulmonary hypertension) 10/06/2021 Vitamin D insufficiency 03/26/2021 Radiation cystitis 12/27/2020 Mixed hyperlipidemia 10/28/2020 Lung nodule 10/27/2020 Hypertension goal BP (blood pressure) < 140/90 0 04/29/2019 Prostate cancer 02/25/2019 History of Lyme disease 05/30/2018 Osteoarthritis of left knee 04/01/2018 Gastroesophageal reflux disease without esophagi tis 03/31/2018 Tobacco use disorder 03/31/2018 documented as of this encounter (statuses as of 01/10/2024) Resolved Problems Problem Noted Date Diagnosed Date Resolved Date COPD, mild 03/30/2022 12/05/2023 Overview: Per COPD GOLD Classification Centrilobular emphysema 10/06/202110/21 Lyme arthritis of knee 06/04/201802/25 documented as of this encounter (statuses as of 01/10/2024) Immunizations Name Administration Dates Next Due Covid-19 [...] money to buy more. Never true 10/01/20 Within the past 12 months, t he [...] encounter Miscellaneous Notes * Telephone Encounter - Ambreen Mccormick OSA - 01/10/2024 10:29 AM EDT Possible Lung Nodule. Please advise. documented in this encounter Plan of Treatment Upcoming Encounters Date Type Department Care Team (Late st Contact Info) Description 05/08/2024 8:40 AM EDT Office Visit General Internal Medicine [facility] [address] [facility] [place] [address] Elmer Durbin MD [address] [facility] [place] [address] 05/20/2024 8:45 AM EDT Office Visit Urology, [facility] [address] [facility] [place] [address] Patric Hernandez MD 27 [facility] [address] [place] [address] Health Maintenance Due Date Last Done Comments Cologuard 1997 Colonoscopy 1997 Colorectal Cancer Screening 1997 Fecal Occult Blood Test 1997 Sigmoidoscopy 1997 Zoster Vaccines (1 of 2) 2002 DTaP,Tdap,and Td Vaccines (2 - Td or Tdap) 10/01/2016 10/01/2006 Pneumococcal Vaccine: 65+ Years (2 of 2 - PPSV23 or PCV20) 07/25/2018 05/30/2018 *COPD SEVERITY VERIFIED BY PFT 10/10/2021 DISCUSS TOBACCO CESSATION (REFER TO SMARTSET #[id number]) 10/06/2022 10/06/2021 COVID-19 Vaccine (2 - season) 2023 03/08/2021 Influenza Vaccine (FLU shot) (#1) 2023 Depression Screening 11/01/2024 11/01/2023 GFR 11/01/2024 11/01/2023, 03/21, 10/01/2022, Additional history exists HbA1c 11/01/2024 11/01/2023 [...] this encounter Medical Devices Implanted Type Area Pecan Mallow Dipper Device Identifier Shelf Expiration Date Model / Serial / Lot Lens Intraoc 23.5 - [id number] - [id number] Implanted:Qty: 1 on 06/19/2018 by Bennett Caro MD at OR [facility] Right: Eye [employer] 11/20/2022 [id number] / [id number] / [id number] Lens Intraoc 23.5 - [id number] - [id number] Implanted:Qty: 1 on 07/01/2018 by Bennett Caro MD at OR [facility] Left: Eye [employer] 12/18/2022 [id number] / [id number] / [id number] documented as of this encounter Advance Directives [...] and were consensually agreed upon. Care Teams Molding And Trim Installer Relationship Specialty Start Date End Date Elmer Durbin MD [address] [place] [address] PCP - General Internal Medicine 12/15/18 documented as of this encounter
--- OUTSIDE RECORDS SUMMARY | 2024-02-10 22:55 | External Medical Summary ---
Author Name Unknown Address Unknown Organization [id number]:[facility] [place] [address] Laboratory Report Ordering Provider Test Date Status AVELINO DIALLO 11/01/2023 10:20:22 Final Observation Date Value Abnormality Reference (Units ) Status Albumin 11/01/2023 10:20:22 4.3 3.8-5.0 (g/dL) Final AST (Aspartate aminotransferase) 11/01/2023 10:20:22 18 10-50 (U/L) Final Alk Phos 11/01/2023 10:20:22 125 35-130 (U/L) Final ALT (Alanine aminotransferase) 11/01/2023 10:20:22 16 10-50 (U/L) Final Bilirubin, Total 11/01/2023 10:20:22 0.9 <=1.2 (mg/dL) Final Bilirubin, Direct 11/01/2023 10:20:22 <0.2 0.0-0.3 (mg/dL) Final Protein 11/01/2023 10:20:22 6.9 6.0-8.3 (g/dL) Final Performing Location [facility] [address] [place] [address]
--- OUTSIDE RECORDS SUMMARY | 2024-02-10 22:55 | External Medical Summary | Summary of Care ---
Author Name Unknown Organization [facility] Address [address] [place] [address] Phone [phone] Care Team Providers Care Desulphurizer Operator Name Role Phone Elmer You MD Primary Care Provider + Reason for Visit * Reason Comments eRx-Medication Refill Encounter Details Date Type Department Care Team (Late st Contact Info) Description 11/24/2023 Refill General Internal Medicine [facility] [address] [facility] [place] [address] Elmer You MD 200 [place] [address] Allergies No known active allergiesdocumented as of this encounter (statuses as of 11/25/2023) Medications Medication Sig Dispensed Refills Start Date End Date Status omeprazole (PRILOSEC) 20 MG CPDR Take 1 Capsule by mouth in the morning. 0 Active Zoster Vac Recomb Adjuvanted 50 MCG/0.5ML Intramuscular Suspension Reconstituted (Shingrix)Indication s:Need for shingles vaccine Inject 0.5 mL into a large muscle now and repeat dose in 60 to 180 days 1 Each 1 03/30/2022 Active D3 5000 125 MCG (5000 UT) Oral Capsule (Cholecalciferol)Ind ications:Vitamin D insufficiency Take 1 Capsule by mouth in the morning. 90 Capsule 0 12/04/2022 Active Vitamin B12 1000 MCG Oral Tablet Extended Release Take 1,000 mcg by mouth in the morning. 0 Active Magnesium 400 MG Oral Tablet Take 400 mg by mouth. 0 Active amLODIPine Besylate 10 MG Oral Tablet (Norvasc)Indications :Hypertension goal BP (blood pressure) < 140/90 TAKE 1 TABLET BY MOUTH EVERY MORNING 90 Tablet 3 06/03/2023 Active Rosuvastatin Calcium 5 MG Oral Tablet (Crestor)Indications :Mixed hyperlipidemia TAKE 1 TABLET BY MOUTH EVERY MORNING 90 Tablet 3 06/03/2023 Active Losartan Potassium 100 MG Oral Tablet (Cozaar) TAKE ONE TABLET BY MOUTH IN THE MORNING 90 Tablet 3 11/25/2023 Active Losartan Potassium 100 MG Oral Tablet (Cozaar) Take 1 Tablet by mouth in the morning. 90 Tablet 3 12/04/2022 Discontinued documented as of this encounter (statuses as of 11/25/2023) Active Problems Problem Noted Date Diagnosed Date [...] as of this encounter (statuses as of 11/25/2023) Resolved Problems Problem Noted Date Diagnosed Date Resolved Date Centrilobular emphysema 10/06/202110/21 Lyme arthritis of knee 06/04/201802/25 documented as of this encounter (statuses as of 11/25/2023) Immunizations Name Administration Dates Next Due Covid-19 [...] encounter Miscellaneous Notes * Telephone Encounter - Osvaldo Davis [facility] - 11/25/2023 11:32 AM EST Signed Prescriptions: Disp Refills Losartan Potassium 100 MG Oral Tablet (Coz*90 Tab*3 Sig: TAKE ONE TABLET BY MOUTH IN THE MORNINGAuthorizing Provider: ELMER YOU User: OSVALDO DAVIS documented in this encounter Plan of Treatment Upcoming Encounters Date Type Department Care Team (Late st Contact Info) Description 01/02/2024 7:15 AM EDT Cardiac Studies Cardiac Studies, [facility] [address] [facility] [place] [address] 05/08/2024 8:40 AM EDT Office Visit General Internal Medicine [address] [place] [address] [place] [address] Elmer You MD [address] [facility] [place] [address] 05/20/2024 8:45 AM EDT Office Visit Urology, [facility] [address] [place] [address] Patric Hernandez MD 27 [facility] [address] [place] [address] Health Maintenance Due Date Last Done Comments [...] this encounter Medical Devices Implanted Type Area Ditch Cleaner Device Identifier Shelf Expiration Date Model / Serial / Lot Lens Intraoc 23.5 - [id number] - [id number] Implanted:Qty: 1 on 06/19/2018 by Bennett Caro MD at OR [facility] Right: Eye [employer] 11/20/2022 [id number] / [id number] / [id number] Lens Intraoc 23.5 - [id number] - [id number] Implanted:Qty: 1 on 07/01/2018 by Bennett Caro MD at OR [facility] Left: Eye [employer] 12/18/2022 [id number] / [id number] / [id number] documented as of this encounter Advance Directives [...] and were consensually agreed upon. Care Teams Desulphurizer Operator Relationship Specialty Start Date End Date Elmer You MD [address] [place] [address] PCP - General Internal Medicine 12/15/18 documented as of this encounter
--- OUTSIDE RECORDS SUMMARY | 2024-02-10 22:55 | External Medical Summary ---
Author Name Unknown Address Unknown Organization [id number]:[facility] [place] - [address] [place] [address] Laboratory Report Ordering Provider Test Date Status YOELADRIEL 11/01/2023 10:20:22 Final Deficient: <20 ng/mL
Ins ufficient: 20-29 ng/mL
Recommended/Optimum:30-50 ng/mL

Vitamin D intoxication is rare. If suspicious of Vitamin D toxicity, evaluation of serum Calcium and PTH is recommended. Observation Date Value Abnormality Reference (Units ) Status 25-OH Vitamin D total 11/01/2023 10:20:22 17 Below low normal >19 (ng/mL) Final Performing Location [facility] - [address] [place] [address]
--- OUTSIDE RECORDS SUMMARY | 2024-02-10 22:55 | External Medical Summary ---
Author Name Unknown Address Unknown Organization [id number]:[facility] [place] - [address] [facility] [address] [place] [address] Laboratory Report Ordering Provider Test Date Status AVELINO DIALLO 11/01/2023 10:20:22 Final Observation Date Value Abnormality Reference (Units ) Status PSA 11/01/2023 10:20:22 0.18 <4.10 (ng/ mL) Final Performing Location [facility] - [address] [place] [address]
--- OUTSIDE RECORDS SUMMARY | 2024-02-10 22:55 | External Medical Summary | Summary of Care ---
Author Name Unknown Organization [facility] Address [address] [place] [address] Phone [phone] Care Team Providers Care Ell Teacher Name Role Phone Elmer Durbin MD Primary Care Provider + Reason for Referral * Precert (Within 10 days (routine)) - Pending Review Specialty Diagnoses / Procedures Referred By Raymond t Referred To Contact Cardiac Studies Diagnoses PHT (pulmonary hypertension) (HCC) Procedures ECHO, COMPLETE (2D), TRANS-THORACIC Elmer Durbin MD [address] [place] [address] Referral ID Status Reason Start Date Expiration Date Visits Requested Visits Authorized [id number] Pending Review Precert 11/01/[phone] * Evaluate & Treat - Unlimited Visits (Within 30 days (routine)) - Pending Review Specialty Diagnoses / Procedures Referred By Raymond dunham Referred To Contact Urology Diagnoses Prostate cancer (HCC) Elmer Durbin MD [address] [place] [address] Referral ID Status Reason Start Date Expiration Date Visits Requested Visits Authorized [id number] Pending Review Specialty Services Required 11/01/[phone] Question Answer Referral Priority Within 30 days (routine) Where should this appointment be scheduled? [facility] What is the patient being referred for? Cancer Reason for Visit * Reason Comments Follow Up The pt stated he is here for his 6 month follow up appointment. The pt denies any new issues at this time. Encounter Details Date Type Department Care Team (Latest Contact Info) Description 11/01/2023 9:40 AM EST Office Visit General Internal Medicine [address] [place] [address] [facility] [place] [address] Elmer Durbin MD [address] [facility] [place] [address] COPD, mild (HCC)*; PHT (pulmonary hypertension) (HCC); Tobacco use disorder; Prostate cancer (HCC); Calculus of gallbladder without cholecystitis without obstruction; Vitamin D insufficiency; Mixed hyperlipidemia; Hypertension goal BP (blood pressure) < 140/90 Allergies No known active allergiesdocumented as of this encounter (statuses as of 11/01/2023) Medications Medication Sig Dispensed Refills Start Date [...] as of this encounter (statuses as of 11/01/2023) Active Problems Problem Noted Date Diagnosed Date Gallstone 04/17/2023 Nonrheumatic tricuspid valve regurgitation 10/01 [...] as of this encounter (statuses as of 11/01/2023) Resolved Problems Problem Noted Date Diagnosed Date Resolved Date Centrilobular emphysema 10/06/202110/21 Lyme arthritis of knee 06/04/201802/25 documented as of this encounter (statuses as of 11/01/2023) Immunizations Name Administration Dates Next Due Covid-19 [...] Date Recorded PHQ Adult Total Score 0 10/01/2022 Hunger Vital Sign Answer Date Recorded Within [...] on file documented as of this encounter Last Filed Vital Signs Vital Sign Reading Time Taken Comments Blood Pressure 114/64 11/01/2023 9:28 AM EST Pulse 96 11/01/2023 9:28 AM EST Temperature 35.4 C (95.7 F) 11/01/2023 9:28 AM ES T Respiratory Rate - - Oxygen Saturation 96% 11/01/2023 9:28 AM EST Inhaled Oxygen Concentration - - Weight 71.4 kg (157 lb 4.8 oz) 11/01/2023 9:28 A M EST Height 180.3 cm (5' 11") 11/01/2023 9:28 AM EST Body Mass Index 21.94 11/01/2023 9:28 AM EST documented in this encounter Progress Notes * Elmer Durbin MD - 11/01/2023 10:11 AM EST Chief Complaint Patient presents with Follow Up The pt stated he is here for his 6 month follow up appointment. The pt denies any new issues at this time. SUBJECTIVE: Phillip Heard is a 73 year old male with PMH as below who presents for follow up COPD, HTN, vit d insuf, prostate cancer. Feels good still smoking, not ready to quit. No cp, sob, flor, feels good Patient Active Problem List Diagnosis Code Gastroesophageal reflux disease without esophagitis K21.9 Tobacco use disorder F17.200 Osteoarthritis of left knee M17.12 History of Lyme disease Z86.19 Prostate cancer (HCC) C61 Hypertension goal BP (blood pressure) < 140/90 I10 Lung nodule R91.1 Mixed hyperlipidemia E78.2 Radiation cystitis N30.40 Vitamin D insufficiency E55.9 Centrilobular emphysema (HCC) J43.2 PHT (pulmonary hypertension) (HCC) I27.20 COPD, mild (HCC) J44.9 Nonrheumatic tricuspid valve regurgitation I36.1 Gallstone K80.20 Current Outpatient Medications Medication Sig Dispense Refill omeprazole (PRILOSEC) 20 MG CPDR Take 1 Capsule by mouth in the morning. Zoster Vac Recomb Adjuvanted 50 MCG/0.5ML Intramuscular Suspension Reconstituted (Shingrix) Inject 0.5 mL into a large muscle now and repeat dose in 60 to 180 days 1 Each 1 Losartan Potassium 100 MG Oral Tablet (Cozaar) Take 1 Tablet by mouth in the morning. 90 Tablet 3 D3 5000 125 MCG (5000 UT) Oral Capsule (Cholecalciferol) Take 1 Capsule by mouth in the morning. 90Capsule 0 Vitamin B12 1000 MCG Oral Tablet Extended Release Take 1,000 mcg by mouth in the morning. Magnesium 400 MG Oral Tablet Take 400 mg by mouth. amLODIPine Besylate 10 MG Oral Tablet (Norvasc) TAKE 1 TABLET BY MOUTH EVERY MORNING 90 Tablet 3 Rosuvastatin Calcium 5 MG Oral Tablet (Crestor) TAKE 1 TABLET BY MOUTH EVERY MORNING 90 Tablet 3 No current facility-administered medications for this visit. Review of patient's allergies indicates: No Known Allergies Health Maintenance Due Topic Date Due Colorectal Cancer Screening Never done Zoster Vaccines (1 of 2) Never done DTaP,Tdap,and Td Vaccines (2 - Td or Tdap) 10/01/2016 Pneumococcal Vaccine: 65+ Years (2 - PPSV23 or PCV20) 07/25/2018 *COPD SEVERITY VERIFIED BY PFT Never done DISCUSS TOBACCO CESSATION (REFER TO SMARTSET #4036) 10/06/2022 Influenza Vaccine (FLU shot) (1) Never done COVID-19 Vaccine (2 - 2022- season) 2023 Depression Screening 10/01/2023 ROS: CONSTITUTIONAL: No change in weight, No weakness, and No fevers, sweats, or chills EYE: No recent significant change in vision, No eye pain, redness, discharge, and No diplopia EARS: No ear pain, No drainage, No tinnitus or vertigo, and No recent change in hearing PULMONARY: No cough, sputum, or hemoptysis, No wheezing, No rales, No shortness of breath, and No recent change in breathing CARDIOVASCULAR: No chest pain, No shortness of breath, No dyspnea on exertion, No orthopnea, No paroxysmal nocturnal dyspnea, No edema, No palpitations, and No syncope GASTROINTESTINAL: No abdominal pain, No change in bowel habits, No significant heartburn, No significant change in appetite, No nausea, vomiting, diarrhea, or constipation, No hematemesis, No blood in stools or black tarry stools, No abdominal bloating or early satiety, and No dysphagia ALL OTHER SYSTEMS NEGATIVE I reviewed social, PMH, PSH, and family history and updated where needed. 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 No mold. 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 Social Determinants of Health Financial Resource Strain: Not on file Food Insecurity: No Food Insecurity (10/01/2022) Hunger Vital Sign Worried About Running Out of Food in the Last Year: Never true Ran Out of Food in the Last Year: Never true Transportation Needs: Not on file Physical Activity: Not on file Stress: Not on file Social Connections: Not on file Intimate Partner Violence: Not on file Housing Stability: Not on file Past Medical History: Diagnosis Date COPD, mild (HCC) 03/30/2022 Gallstone 04/17/2023 Gastroesophageal reflux disease without esophagitis 03/31/2018 Lyme arthritis of knee (HCC) 06/04/2018 Mixed hyperlipidemia 10/28/2020 Nonrheumatic tricuspid valve regurgitation 10/01/2022 Osteoarthritis of left knee Prostate CA (HCC) 2019 Pulmonary arterial hypertension (HCC) Tobacco use disorder 03/31/2018 Vitamin D insufficiency 03/26/2021 Past Surgical History: Procedure Laterality Date NONE PROSTATE BIOPSY 12/15/2018 done in office, Dr Newberry REMOVE CATARACT, INSERT LENS PROSTH Right 06/19/2018 right EXTRACAPSULAR CATARACT REMOVAL WITH INTRAOCULAR LENS performed by Bennett Caro MD at OR [facility] REMOVE CATARACT, INSERT LENS PROSTH Left 07/01/2018 left EXTRACAPSULAR CATARACT REMOVAL WITH INTRAOCULAR LENS performed by Bennett Caro MD at OR [facility] Family History Problem Relation Age of Onset Other (MVA) Mother Heart attack Father Fatal [place] age 51 No Known Problems Sister Other (Cerebral hemorrhage) Sister age 26 Other (S/P fall) Sister No Known Problems Sister No Known Problems Sister No Known Problems Sister Prostate cancer Brother No Known Problems Brother No Known Problems Brother OBJECTIVE: PHYSICAL EXAM: BP 114/64 | Pulse 96 | Temp 35.4 C (95.7 F) | Ht 1.803 m (5' 11") | Wt 71.4 kg (157 lb 4.8 oz) | SpO2 96% | BMI 21.94 kg/m | BSA 1.89 m General: alert, healthy, and no distress Head: Normocephalic, No masses, lesions, tenderness or abnormalities Eye Exam: conjunctiva are pink and non-injected, sclera clear Ears: External ears normal, Canals clear, TM's Normal Heart: regular rate & rhythm, no murmur, no gallops, PMI non-displaced, S-1 normal, and S-2 normal Lungs: normal respiratory rate and rhythm, lungs clear to auscultation Psych: normal affect, no flight of ideas or tangential thought, good eye contact, no pressured speech I reviewed last lipid, gfr, pth, 25 oh ASSESSMENT: J44.9 COPD, mild (HCC) (primary encounter diagnosis) I27.20 PHT (pulmonary hypertension) ([facility]) F17.200 Tobacco use disorder C61 Prostate cancer (HCC) K80.20 Calculus of gallbladder without cholecystitis without obstruction E55.9 Vitamin D insufficiency E78.2 Mixed hyperlipidemia I10 Hypertension goal BP (blood pressure) < 140/90 PLAN: COPD, mild (HCC) (Primary) Seems controlled No symptoms Smoking cessation advised PHT (pulmonary hypertension) ([facility]) - ECHO, COMPLETE (2D), TRANS-THORACIC; Future; Expected date: 11/01/2023 Recheck echo Tobacco use disorder Discussed smoking cessation, not ready Prostate cancer (HCC) - PSA; Future; Expected date: 11/01/2023 - UROLOGY REFERRAL OP Is in low dose program screen Calculus of gallbladder without cholecystitis without obstruction No symptoms Monitor Vitamin D insufficiency Await labs Mixed hyperlipidemia Await labs Cont rosuvastatin Hypertension goal BP (blood pressure) < 140/90 Controlled Cont amlodipine, losartan Labs today Follow Up: Return in about 6 months (around 05/01/2024), or if symptoms worsen or fail to improve, for Labs Today. | For: Labs Today Declines all vaccines except tdap, will get at pharmacy, declines colon cancer screen documented in this encounter Nursing Notes * René Marquez LPN - 11/01/2023 9:27 AM EST Chief Complaint Patient presents with Follow Up The pt stated he is here for his 6 month follow up appointment. The pt denies any new issues at this time. documented in this encounter Plan of Treatment Upcoming Encounters Date Type Department Care Team (Late st Contact Info) Description 01/02/2024 7:15 AM EDT Cardiac Studies Cardiac Studies, [facility] [address] [facility] [place] [address] 05/08/2024 8:40 AM EDT Office Visit General Internal Medicine [facility] [address] [facility] [place] [address] Elmer Durbin MD [address] [facility] [address] 05/20/2024 8:45 AM EDT Office Visit Urology, [facility] [address] [facility] [place] [address] Patric Hernandez MD [address] [place] [address] [place] [address] Pending Results Name Type Priority Associated Diagnoses Date /Time PSA Lab Routine Prostate cancer (HCC) 11/01/2023 10:20 AM EST Scheduled Orders Name Type Priority Associated Diagnoses Orde r Schedule PSA Lab Routine Prostate cancer (HCC) Expected: 11/01/2023 (Approximate), Expires: 10/31/2024 ECHO, COMPLETE (2D), TRANS-THORACIC Echocardiology Routine PHT (pulmonary hypertension) (HCC) Expected: 11/01/2023 (Approximate), Expires: 10/31/2024 Scheduled Referrals Name Type Priority Associated Diagnoses Orde r Schedule UROLOGY REFERRAL OP Referral Within 30 da ys (routine) Prostate cancer (HCC) Ordered: 11/01/2023 Health Maintenance Due Date Last Done Comments [...] Vaccine (FLU shot) (#1) 2023 Depression Screening 10/01/2023 11/01/2023 GFR 04/02/2024 04/02/2023, 09/20, 04/13/2022, Additional history exists O2 ASSESSMENT COMPLETED IN PAST YEAR FOR COPD 04/02/2024 11/01/2023 Albumin/Creatinine Ratio 10/01/2025 10/01/2022, 05/21 Lipid [...] this encounter Medical Devices Implanted Type Area Applications Engineer Manufacturing Device Identifier Shelf Expiration Date Model / Serial / Lot Lens Intraoc 23.5 - [id number] - [id number] Implanted:Qty: 1 on 06/19/2018 by Bennett Caro MD at [facility] Right: Eye [employer] 11/20/2022 [id number] / [id number] / [id number] Lens Intraoc 23.5 - [id number] - [id number] Implanted:Qty: 1 on 07/01/2018 by Bennett Caro MD at OR [facility] Left: Eye [employer]OM[employer] 12/18/2022 [id number] / [id number] / [id number] documented as of this encounter Visit Diagnoses Diagnosis COPD, mild (HCC)- Primary Chronic airway obstruction, not elsewhere classified PHT (pulmonary hypertension) (HCC) Other chronic pulmonary heart diseases Tobacco use disorder Prostate cancer (HCC) Malignant neoplasm of prostate Calculus of gallbladder without cholecystitis without obstruction Calculus of gallbladder without mention of cholecystitis or obstruction Vitamin D insufficiency Unspecified vitamin D deficiency Mixed hyperlipidemia Hypertension goal BP (blood pressure) < 140/90 Unspecified essential hypertension documented in this encounter Advance Directives Latest Code Status [...] and were consensually agreed upon. Care Teams Ell Teacher Relationship Specialty Start Date End Date Elmer Durbin MD [address] [place] [address] PCP - General Internal Medicine 12/15/18 documented as of this encounter
--- OUTSIDE RECORDS SUMMARY | 2024-02-10 22:55 | External Medical Summary ---
Author Name Unknown Address Unknown Organization K09[facility] [place] [address] Laboratory Report Ordering Provider Test Date Status AVELINO DIALLO 11/01/2023 10:20:22 Final Observation Date Value Abnormality Reference (Units ) Status BUN 11/01/2023 10:20:22 18 6-20 (mg/dL) Final Creatinine 11/01/2023 10:20:22 1.0 0.6-1.2 (mg/dL) Final Glomerular filtration rate/1.73 sq M.predicted [Volume Rate/Area] in Serum, Plasma or Blood by Creatinine-based formula (CKD-EPI) 11/01/2023 10:20:22 79 >=60 (mL/min) Final eGFR is calculated based on the CKD-EPI 2020 equation SODIUM 11/01/2023 10:20:22 140 135-146 (m mol/L) Final Potassium 11/01/2023 10:20:22 4.8 3.5-5.1 (m mol/L) Final Cl 11/01/2023 10:20:22 104 98-107 (mm ol/L) Final CO2 11/01/2023 10:20:22 28 22-32 (mmo l/L) Final Anion gap 11/01/2023 10:20:22 8 7-15 (mmol /L) Final Glucose 11/01/2023 10:20:22 98 70-120 (mg /dL) Final Calcium 11/01/2023 10:20:22 9.7 8.4-10.2 ( mg/dL) Final Performing Location [facility] [place] [address]
--- OUTSIDE RECORDS SUMMARY | 2024-02-10 22:55 | External Medical Summary ---
Author Name Unknown Address Unknown Organization K01:[facility] [place] [address] [place] [address] Laboratory Report Ordering Provider Test Date Status AVELINO DIALLO 11/01/2023 10:20:22 Final Observation Date Value Abnormality Reference (Units ) Status Parathyrin.intact [Mass/volume] in Serum or Plasma 11/01/2023 10:20:22 97 Above high normal 15-65 (pg/mL) Final Performing Location [facility] [place] [address] [place] [address]
--- OUTSIDE RECORDS SUMMARY | 2024-02-10 22:55 | External Medical Summary | Summary of Care ---
Author Name Unknown Organization [facility] Address [address] [place] [address] Phone [phone] Care Team Providers Care Supervisor Hydrochloric Area Name Role Phone Elmer Durbin MD Primary Care Provider + Reason for Visit * Reason Comments Outpatient Testing Encounter Details Date Type Department Care Team (Late st Contact Info) Description 11/01/2023 10:20 AM EST Laboratory Laboratory [facility] [place] [address] [place] [address] [facility] [address] [place] [address] Parathyroid abnormality (HCC); Vitamin D insufficiency; Encounter for long-term (current) use of medications; Hypomagnesemia; Elevated glucose; Prostate cancer (HCC) Allergies No known active allergiesdocumented as of [...] on file documented as of this encounter Plan of Treatment Upcoming Encounters Date Type Department Care Team (Late st Contact Info) Description 01/02/2024 7:15 AM EDT Cardiac Studies Cardiac Studies, [facility] [address] [facility] [place] [address] 05/08/2024 8:40 AM EDT Office Visit General Internal Medicine [facility] [address] [facility] [place] [address] Elmer Durbin MD [address] [facility] [place] [address] 05/20/2024 8:45 AM EDT Office Visit Urology, [facility] [address] [facility] [place] [address] Patirc Hernandez MD [address] [address] [place] [address] Pending Results Name Type Priority Associated Diagnoses Date /Time BASIC METABOLIC PANEL Lab Routine Parathyroid abnormality (HCC) 11/01/2023 10:20 AM EST 25-HYDROXY VITAMIN D Lab Routine Parathyroid abnormality (HCC) Vitamin D insufficiency 11/01/2023 10:20 AM EST PTH Lab Routine Parathyroid abnormality (HCC) 11/01/2023 10:20 AM EST HEPATIC FUNCTION PANEL Lab Routine Parathyroid abnormality (HCC) 11/01/2023 10:20 AM EST VITAMIN B12 Lab Routine Encounter for long-term (current) use of medications 11/01/2023 10:20 AM EST MAGNESIUM Lab Routine Hypomagnesemia 11/01/2023 10:20 AM EST HEMOGLOBIN A1C Lab Routine Elevated glucose 11/01/2023 10:20 AM EST PSA Lab Routine Prostate cancer (HCC) 11/01/2023 10:20 AM EST Health Maintenance Due Date Last Done Comments [...] this encounter Medical Devices Implanted Type Area Ampoule Washing Machine Operator Device Identifier Shelf Expiration Date Model / Serial / Lot Lens Intraoc 23.5 - [id number] - [id number] Implanted:Qty: 1 on 06/19/2018 by Bennett Caro MD at OR [facility] Right: Eye [employer] 11/20/2022 [id number] / [id number] / [id number] Lens Intraoc 23.5 - [id number] - [id number] Implanted:Qty: 1 on 07/01/2018 by Bennett Caro MD at OR [facility] Left: Eye [employer]OM[employer] 12/18/2022 [id number] / [id number] / [id number] documented as of this encounter Visit Diagnoses Diagnosis Parathyroid abnormality (HCC) Unspecified disorder of parathyroid gland Vitamin D insufficiency Unspecified vitamin D deficiency Encounter for long-term (current) use of medications Encounter for long-term (current) use of other medications Hypomagnesemia Disorders of magnesium metabolism Elevated glucose Other abnormal glucose Prostate cancer (HCC) Malignant neoplasm of prostate documented in this encounter Advance Directives Latest [...] and were consensually agreed upon. Care Teams Supervisor Hydrochloric Area Relationship Specialty Start Date End Date Elmer Durbin MD [address] [place] [address] PCP - General Internal Medicine 12/15/18 documented as of this encounter
--- OUTSIDE RECORDS SUMMARY | 2024-02-10 22:55 | External Medical Summary | Summary of Care ---
Author Name Unknown Organization [facility] Address [address] [place] [address] Phone [phone] Care Team Providers Care Laboratory Technical Specialist Name Role Phone Elmer Durbin MD Primary Care Provider + Reason for Referral * Evaluate & Treat - Unlimited Visits (Within 30 days (routine)) - Pending Review Specialty Diagnoses / Procedures Referred By Raymond dunham Referred To Contact Pulmonary Diseases / Pulmonary Diagnoses COPD, group A, by GOLD 2017 classification (HCC) Lung nodule Pulmonary hypertension (HCC) Elmer Durbin MD [address] [place] [address] Referral ID Status Reason Start Date Expiration Date Visits Requested Visits Authorized [id number] Pending Review Specialty Services Required 01/10/[phone] Question Answer Referral Priority Within 30 days (routine) Where should this appointment be scheduled? [facility] Primary Reason for Referral? Other Reason for Visit * Reason Onset Date Comments Test Results 01/09/2024 Encounter Details Date Type Department Care Team (Late st Contact Info) Description 01/09/2024 Telephone General Internal Medicine [facility] [address] [place] [address] Elmer Durbin MD [address] [place] [address] Test Results Allergies No known active allergiesdocumented as of [...] encounter Miscellaneous Notes * Telephone Encounter - Trixie Rosenthal LPN - 01/09/2024 12:27 PM EDT Patient aware and verbalized understanding Willing to see pulmonary * Telephone Encounter - Trixie Rosenthal LPN - 01/09/2024 12:00 PM EDT ----- Message from Elmer Durbin MD sent at 01/07/2024 8:32 AM EDT ----- Heart is functioning fine The aortic valve is mildly calcified, but aortic valve leaflets open normally which good Moderate pulmonary hypertension is present (higher pressures in lungs). Could be from lung disease/smoking and I'd like him to see pulmonary about this, is he willing to go? I will place referral if agrees documented in this encounter Plan of Treatment Upcoming Encounters Date Type Department Care Team (Late st Contact Info) Description 05/08/2024 8:40 AM EDT Office Visit General Internal Medicine [facility] [address] [facility] [place] [address] [facility] MD [facility] [address] 05/20/2024 8:45 AM EDT Office Visit Urology, [facility] [address] [facility] [place] [address] Patric Hernandez MD [address] [facility] [address] [place] [address] Scheduled Referrals Name Type Priority Associated Diagnoses Orde r Schedule PULMONARY REFERRAL OP Referral Within 30 days (routine) COPD, group A, by GOLD 2017 classification (HCC) Lung nodule Pulmonary hypertension (HCC) Ordered: 01/10/2024 Health Maintenance Due Date Last Done Comments [...] TO SMARTSET #[id number]) 10/06/2022 10/06/2021 COVID-19 Vaccine ( season) 2023 03/08/2021 Influenza Vaccine (FLU shot) [...] this encounter Medical Devices Implanted Type Area Cornice Maker Device Identifier Shelf Expiration Date Model / Serial / Lot Lens Intraoc 23.5 - [id number] - [id number] Implanted:Qty: 1 on 06/19/2018 by Bennett Caro MD at OR [facility] Right: Eye [employer] 11/20/2022 [id number] / [id number] / [id number] Lens Intraoc 23.5 - [id number] - [id number] Implanted:Qty: 1 on 07/01/2018 by Bennett Caro MD at OR [facility] Left: Eye [employer]OM[employer] 12/18/2022 [id number] / [id number] / [id number] documented as of this encounter Visit Diagnoses Diagnosis COPD, group A, by GOLD 2017 classification (HCC)- Primary Lung nodule Solitary pulmonary nodule Pulmonary hypertension (HCC) Other chronic pulmonary heart diseases documented in this encounter Advance Directives Latest [...] and were consensually agreed upon. Care Teams Laboratory Technical Specialist Relationship Specialty Start Date End Date Elmer Durbin MD [address] [place] [address] PCP - General Internal Medicine 12/15/18 documented as of this encounter
--- OUTSIDE RECORDS SUMMARY | 2024-02-10 22:55 | External Medical Summary ---
Author Name Unknown Address Unknown Organization K01:[facility] [place] - [address] [facility] [address] Laboratory Report Ordering Provider Test Date Status YOELADRIEL 11/01/2023 10:20:22 Final Observation Date Value Abnormality Reference (Units ) Status HbA1C 11/01/2023 10:20:22 5.8 Above high normal 4. 0-5.6 (%) Final The use of HbA1c to monitor glycemic status is based on normal hemoglobin and HbA composition. This test should not be used in patients with abnormal hemoglobin that affects the half life of the red blood cell or the in vivo glycation rates. Glucose, estimated average 11/01/2023 10:20:22 120 <126 (mg/dL) Final Performing Location [facility] [place] - [address] [place] [address]
--- OUTSIDE RECORDS SUMMARY | 2024-02-10 22:55 | External Medical Summary | Summary of Care ---
Author Name Unknown Organization [facility] Address [address] [place] [address] Phone [phone] Care Team Providers Care Mergers And Acquisitions Attorney Name Role Phone Elmer Durbin MD Primary Care Provider + Reason for Visit * Reason Onset Date Comments Advice 01/10/2024 Encounter Details Date Type Department Care Team (Late st Contact Info) Description 01/10/2024 Telephone Access Center, [place] [address] [facility] *DO NOT REMOVE THIS DEPARTMENT* [place] [address] Services, Scheduling [address] [place] [address] Advice Allergies No known active allergiesdocumented as [...] Next Due Covid-19 Ad26, Single Dose (Joo/J&J) 03/08/2021 Pneumococcal Conjugate Vacc, 13 Valent (Prevnar) 05/30/2018 Seasonal Influenza, Split, I IV3, With Preserve, Inj 10/28/2008(Deferred: Patient Refused) TDAP (age 11 and older)(Adacel) 10/01/2006 documented [...] encounter Miscellaneous Notes * Telephone Encounter - Mary Viveros LPN - 01/10/2024 11:50 AM EDT Please schedule as per referral. STAIR not needed, pt enrolled in [facility] * Telephone Encounter - Ambreen Mccormick OSA - 01/10/2024 10:29 AM EDT Possible Lung Nodule. Please advise. documented in this encounter Plan of Treatment Upcoming Encounters Date Type Department Care Team (Late st Contact Info) Description 05/08/2024 8:40 AM EDT Office Visit General Internal Medicine [address] [place] [address] [place] [address] Elmer Durbin MD [address] [place] [id number] 05/20/2024 8:45 AM EDT Office Visit Urology, [facility] [address] [place] [address] Patric Hernandez MD [address] [place] [address] Health Maintenance Due Date Last Done Comments Cologuard 1997 Colonoscopy 1997 Colorectal Cancer Screening 1997 Fecal Occult Blood Test 1997 Sigmoidoscopy 1997 Zoster Vaccines (1 of 2) 2002 DTaP,Tdap,and Td Vaccines (2 - Td or Tdap) 10/01/2016 10/01/2006 Pneumococcal Vaccine: 65+ Years (2 of 2 - PPSV23 or PCV20) 07/25/2018 05/30/2018 *COPD SEVERITY VERIFIED BY PFT 10/10/2021 DISCUSS TOBACCO CESSATION (REFER TO SMARTSET #[id number]) 10/06/2022 10/06/2021 COVID-19 Vaccine (2 - 2022- season) 2023 03/08/2021 Influenza Vaccine (FLU shot) [...] this encounter Medical Devices Implanted Type Area Men'S Garment Fitter Device Identifier Shelf Expiration Date Model / Serial / Lot Lens Intraoc 23.5 - [id number] - [id number] Implanted:Qty: 1 on 06/19/2018 by Bennett Caro MD at OR [facility] Right: Eye [employer] 11/20/2022 [id number] / [id number] / [id number] Lens Intraoc 23.5 - [id number] - [id number] Implanted:Qty: 1 on 07/01/2018 by Bennett Caro MD at OR [facility] Left: Eye [employer] 12/18/2022 [id number] / [id number] / [id number] documented as of this encounter Advance Directives [...] and were consensually agreed upon. Care Teams Mergers And Acquisitions Attorney Relationship Specialty Start Date End Date Elmer Durbin MD [address] [facility] [place] [address] PCP - General Internal Medicine 12/15/18 documented as of this encounter
--- OUTSIDE RECORDS SUMMARY | 2024-02-10 22:56 | External Medical Summary ---
Author Name Unknown Address Unknown Organization K01:[facility] [place] - [address] [place] [address] Laboratory Report Ordering Provider Test Date Status AVELINO DIALLO 11/01/2023 10:20:22 Final Observation Date Value Abnormality Reference (Units ) Status Vitamin B12 11/01/2023 10:20:22 [id number] (pg/mL) Final Performing Location [facility] [place] - [address] [place] [address]
[2024-02-11 02:21] VITALS: RESP 18
[2024-02-11 06:34] LABS: Hematocrit (blood only) 44.9 % (42.0-52.0); Hemoglobin 15.1 g/dl (14.0-18.0); Mean Corpuscular Hgb Conc 33.6 g/dL (32.0-36.0); Mean Corpuscular Volume 86.3 fL (80.0-100.0); Mean Platelet Volume 10.6 fL (9.4-12.4); Platelet Count 239 K/uL (130-400); RDW Coefficient of Variation 13.4 % (11.5-14.5); RDW Standard Deviation 42.3 fL (36.4-46.3); White Blood Count 7.72 K/ul (4.8-10.8)
[2024-02-11 07:00] LABS: Albumin Globulin Ratio 1.3 (0.9-2); BUN Creatinine Ratio 21.5 (10-20); Calcium 9.6 mg/dl (8.6-10.3); Chol HDL Ratio 2.6 (0-5); Creatinine Clr Calc Pharmacy 71.3 ml/min; Est GFR (African American) 95.4 ml/min; Est GFR (Non-African American) 82.3 ml/min; Potassium 4.3 mmol/L (3.5-5.1)
[2024-02-11 07:24] LABS: ANTI-Xa, UFH(UnfractionatedHep 0.43 IU/ml (0.3-0.7); INR 1.1 (0.9-1.1); Prothrombin Time 12.1 Seconds (9.0-12.0)
[2024-02-11] MEDS: PANTOprazole 40 MG TAB PO SCH (08:48)
[2024-02-11] MEDS: amLODIPine BESYLATE 5 MG TAB PO SCH (08:48)
[2024-02-11] MEDS: CHOLECALCIFEROL 25 MCG (1000 UNITS) TAB PO SCH (08:48)
[2024-02-11] MEDS: CYANOCOBALAMIN (B-12) 500 MCG TABLET PO SCH (08:48)
[2024-02-11] MEDS: LOSARTAN POTASSIUM 50 MG TAB PO SCH (08:48)
[2024-02-11] MEDS: ASPIRIN 81 MG ECTAB PO SCH (09:16)
--- NOTE | 2024-02-11 09:19 | Consultation ---
Date of Consultation February 11, 2024 Assessment & Plan (1) Peripheral arterial disease: Pt with moderate PAD and R pop occlusion, which appears chronic. His R foot is warm and well perfused, and while his RLE pulses are not palpable, they are easily dopplerable. He has no foot pain or numbness to indicate acute ischemia. His sx of intermittent R calf "tightness" which is not exertional are inconsistent with RLE claudication. Pt discussed at length with Dr Fox, recommends pt be reeval in office in 2 weeks. Recommend pt be on 81mg ASA and plavix at d/c. Pt advised to call if he develops any worsening sx. Pt agreeable to this plan. His family member was also present for the discussion. History of Present Illness Reason for Consultation: RLE PAD Attending Physician: William Rodríguez MD History of Present Illness 73 yo m with hx of HTN, hyperlipidemia, GERD, and prostate ca, admitted with RLE pain, seen in consultation today for PAD noted on imaging. Pt states he noted intermittent R calf "tightening" for the past 1 week. States this occurred a few times per day, with the exception of Saturday, when he felt no pain. States the pain is not severe when it occurs, but came to [facility] for eval b/c it was not improving and he was concerned about his R lower leg feeling cold to touch. States the "tightening" began to occur in his R distal upper leg as well. States this does not feel like charley-horse cramps. States sx occur when standing, sitting, lying, or walking. No position or activity seems to worsen his sx. Pt is very active and fully independent. No prior knowledge of PAD in past. Denies any spinal problems or trauma or chronic back pain. Denies associated numbness or tingling, discoloration of toes, foot pain at all, inabiity to ambulate. Denies CAM, fever, recent illness, chest pain, SOB, palpitations, abd pain, N/V, rest pain, claudication, other complaints. RLE Arterial US demonstrates moderate PAD of RLE, with popliteal art occlusion. No IRENE performed. Allergies Allergy/AdvReac Type Severity Reaction Status Date / Time No Known Allergies Allergy Mild Verified 02/10/24 14:27 Home Medications Medication Instructions Recorded Confirmed Type amlodipine 10 mg tablet 10 mg PO DAILY 12/02/21 02/10/24 History losartan 50 mg tablet 100 mg PO DAILY 12/02/21 02/10/24 History omeprazole 20 mg tablet,delayed 20 mg PO DAILY 12/02/21 02/10/24 History release cholecalciferol (vitamin D3) 25 25 mcg PO DAILY 02/10/24 02/10/24 History mcg (1,000 unit) chewable tablet (Vitamin D3) cyanocobalamin (vitamin B-12) 1,000 mcg PO DAILY 02/10/24 02/10/24 History 1,000 mcg tablet (Vitamin B-12) Patient History Medical History HLD (hyperlipidemia) HTN (hypertension) Prostate cancer Diagnosed 12/15/18 - Ashlyn 3+4 Lyme arthritis of knee History of Lyme disease Osteoarthritis of left knee Tobacco use disorder Gastroesophageal reflux Surgical History History of cataract surgery 06/2018 Family History Mother , Passed age 52 in MVA No problems noted. Father , Passed age 68 of unknown No problems noted. Brother , Passed age 23 of MVA No problems noted. Brother No problems noted. Brother No problems noted. Brother No problems noted. Sister , Passed in 40's of complication from MVA No problems noted. Sister No problems noted. Sister No problems noted. Sister No problems noted. Sister No problems noted. Sister No problems noted. Son No problems noted. Son No problems noted. Other No pertinent family history Social History Smoking Status: Current every day smoker Tobacco Type: Cigarettes Cigarettes Per Day: 1 pack/day; Do You Dip or Chew Tobacco: No; Hx Alcohol Use: No Hx Substance Use: No Preferred Language: Persian Visual Impairment: No Limitations Hearing Ability: Hard of Hearing Double Needle Operator Required: No Beliefs That Will Affect Care: None marital status: Single Current Living Situation: Alone current occupational status: retired current occupation: Retired [id number] Other Information That Helps Us Care for You: No Feels Safe at Home: Yes Safety Concerns: Feels Safe At This Time caffeine: Yes (30oz coffee/day ) during the past year weight has: remained stable Assistive Devices: Denture - Upper Review of Systems Review of Systems: All systems reviewed & are unremarkable except as noted in HPI & below Physical Exam Constitutional: WD/WN, vitals as above healthy appearing, cooperative and comfortable; not in distress ENMT: Ears: no hearing impairment Neck: trachea midline Respiratory: normal respiratory effort, lungs clear to auscultation Auscultation: + diminished lung sounds Cardiovascular: Rate/Rhythm: regular rate and regular rhythm Vessels: femoral pulses present, posterior tibial pulses present (LLE +2, RLE +doppler signal), dorsalis pedis pulses present (LLE +2, RLE +dopplerable) and radial pulses present; + abnormal peripheral pulses Extremities: normal capillary refill (LLE 3 seconds, RLE 6 seconds); no edema Gastrointestinal (Abdomen): Inspection/Auscultation: abdomen normal to inspection and normal bowel sounds Percussion/Palpation: abdomen soft; abdomen nontender Musculoskeletal: no cyanosis or clubbing, extremities motor strength 5/5 Skin: no rashes, warm and dry Neurologic: moves all extremities and awake; no focal motor deficits and not confused Psychiatric: A+Ox3, euthymic affect Results & Data Vital Signs (Past 12 Hours) Vital Signs Temp Pulse Pulse Resp BP Pulse Ox O2 Del Method 02/11/24 08:11 36.6 C 74 18 149/81 H 94 Room Air 02/11/24 02:21 36.5 C 73 18 130/74 95 Room Air 02/10/24 23:37 71 02/10/24 22:26 36.4 C L 81 16 136/80 93 Room Air
[2024-02-11 12:19] VITALS: PULSE 82; TEMP 98.1; O2SAT 97
[2024-02-11] MEDS: OPTIRAY 320 125ml IV ONE (13:04)
--- NOTE | 2024-02-11 14:38 | Hospitalist Progress Note ---
Date of Service February 11, 2024 Assessment & Plan (1) HTN (hypertension): (2) HLD (hyperlipidemia): (3) Prostate cancer: (4) Tobacco use disorder: (5) Gastroesophageal reflux: Plan Mr. Heard is a 73 year old male that presents to the ED with right leg pain and admitted for PAD with antiplatelet and heparin drip per vascular recommendations. PAD: Arterial Duplex Scan revealed Atherosclerosis with age-indeterminate occlusion of the right popliteal artery. Blunted monophasic waveforms within the lower leg arteries. Venous Duplex scan negative for DVT S/p heparin drip, aspirin, statin Discussed with vascular and reviewed their notes- moderated PAD with R popliteal occlusion, likely chronic. No evidence of acute ischemia. CT LE pending. Recommended ASA/plavix upon discharge and f/u in 2 weeks in the office. Recommended to quit smoking HTN: BP stable, continue losartan, amlodipine Ongoing tobacco use: Smoking 1/2 pack cigarettes per day. Recommended quitting H/O Prostate Cancer 2019: S/P Lupron therapy x 18 months + Radx Follows with Urology; no prostatectomy Last PSA 0.18 DVT ppx- heparin drip Dispo- Pending CT RLE Updated family at bedside Time- approx 35 mins Admission and Anticipated Discharge Date Admission Date: February 10, 2024 Subjective Patient was seen and examined at bedside. He feels fine. The leg pain is completely resolved since ED presentation. He ambulated in the room and felt fine. No fever, chills, chest pain, SOB, N/V. Review of Systems Review of Systems: All systems reviewed & are unremarkable except as noted in Subjective Physical Exam Physical Exam: General: Lying comfortably in bed, not in distress, on room air HEENT: EOMI, RALPH, MMM Chest: Clear breath sounds bilaterally, no wheezes or crackles CVS: Regular rate and rhythm, normal heart sounds, no murmur Abdomen: Soft, non tender, not distended, normal bowel sounds Neuro: Awake, alert, oriented, conversing well, non focal Extremities: No cyanosis, clubbing or edema Results & Data Results & Data Vital Signs (Past 12 Hours) Vital Signs Temp Pulse Pulse Resp BP Pulse Ox O2 Del Method 02/11/24 12:16 36.7 C 82 18 128/89 97 Room Air 02/11/24 09:00 69 02/11/24 08:11 36.6 C 74 18 149/81 H 94 Room Air Laboratory Results Short CBC 02/11/24 Range/Units 05:38 WBC 7.72 (4.8-10.8) K/ul Hgb 15.1 (14.0-18.0) g/dl Hct 44.9 (42.0-52.0) % Plt Count 239 (130-400) K/uL BMP 02/11/24 05:38 Sodium 138 Potassium 4.3 Chloride 105 Carbon Dioxide 27 BUN 20 Creatinine 0.93 Glucose 95 Calcium 9.6 Liver Function 02/11/24 Range/Units 05:38 Total Bilirubin 1.0 (0.2-1.0) mg/dl AST 13 (13-39) U/L ALT 11 (7-52) U/L Alkaline Phosphatase 101 (34-104) U/L Albumin 4.0 (3.4-5.0) gm/dl
--- NOTE | 2024-02-11 14:54 | CT Scan Report ---
CT angio LE RT w inc wo if don HISTORY: 73 years-old Male popliteal artery occlusion Follow-up study in a patient with right lower extremity pain and age-indeterminate occlusion of the popliteal artery. COMPARISON: Duplex venous Doppler 02/10/2024 TECHNIQUE: CTA of the right lower extremity was obtained with IV contrast. 3-D coronal and sagittal M IPs were obtained and submitted for review. All measurements were obtained according to NASCET criter ia. A dose lowering technique was used consistent with the principals of ROSS. FINDINGS: CTA: There is occlusion of the imaged right external iliac artery with reconstitution of flow within the r ight common femoral artery via the inferior epigastric and collateral flow via branches of the patent right internal iliac artery. There is approximately 50% stenosis within the common femoral artery se condary to atherosclerotic plaque. Patent superficial femoral and profunda femoris arteries. 8.7 cm s egment of occlusion involves the popliteal artery extending into the tibioperoneal trunk. There is re constitution of flow within the upper calf with patent anterior tibial, posterior tibial and peroneal arteries demonstrating mostly mild multifocal stenosis. High-grade stenosis is noted involving the d istal posterior tibial artery. CT: No acute intrapelvic abnormality. Urinary bladder wall thickening with partial distention. Colonic di verticulosis. Prostatomegaly. There is no lymphadenopathy. Unremarkable appearance of the musculature . No acute fracture. IMPRESSION: 1. Complete occlusion of the imaged right external iliac artery with reconstitution of flow within th e common femoral artery. 2. Several centimeter segment of occlusion involves the popliteal artery extending into the tibiopero jeremy trunk. Flow is noted within the anterior tibial, posterior tibial and peroneal arteries. 3. High-grade stenosis of the distal posterior tibial artery. ACT 112: Negative or not required by law. The above report was generated using voice recognition software. It may contain grammatical, syntax o r spelling errors. Dictated: 02/11/2024 1:58 PM Transcribed: 02/11/2024 2:47 PM Mansi [id number] Miguelangel [id number] Electronically signed by: James March M.D. 02/11/2024 2:53 PM
--- NOTE | 2024-02-11 15:37 | Discharge Summary ---
Date of Service February 11, 2024 Admission HPI Per Admitting Provider Mr. Heard is a 73 year old male that presents to the ED with R leg pain that started on Saturday. He reportedly was having pallor and coolness in the right lower extremity. Today he has complaints including neuropathy as well. No ambulation difficulty. Reports tightness in the back of his right calf. Does not take any antilipid lowering agents. Is compliant with his blood pressure medications. He has never been diagnosed with atherosclerosis before. PMH includes: HTN, COPD, prostate CA, and GERD. He is generally otherwise healthy. No recent surgeries. No leukocytosis, no erythema or warmth at site. Reports neuropathic symptoms on his right foot. Pt smokes 1/2 ppd cigarettes. Smoking cessation recommended. No alcohol or recreational drug concerns. Duplex scan of the lower arteries indicated Atherosclerosis with age- indeterminate occlusion of the right popliteal artery and blunted monophasic waveforms within the lower leg arteries. Venous duplex US was negative for DVT. ED physician reached out to vascular surgery who suggested a Heparin gtt with bolus that was initiated in the ED. Pt denies CAM, dizziness, lightheadedness, chest pain, SOB, abdominal pain or tenderness, visual or auditory changes, N/V/D, recent falls or trauma. Pt will be admitted for further evaluation and management of his PAD with popliteal arterial occlusion. Will add Lipitor and a daily baby aspirin, and will check fasting lipid panel in AM along with NPO after MN. Admission Exam Per Admitting Provider Constitutional: Alert oriented x 3; not in distress. Respiratory: normal respiratory effort, lungs clear to auscultation, no wheeze, rales, rhonchi. Normal insp/exp effort, no accessory muscle use Cardiovascular: RRR, no murmur, no edema Vessels: no JVD or carotid bruit Chest: normal inspection of chest Abdomen: normal bowel sounds, soft, nontender, no hepatosplenomegaly Musculoskeletal: no cyanosis or clubbing, extremities motor strength 5/5. Dorsalis pedis on the left palpable; unable to appreciate dorsalis pedis pulse on her right foot. No color changes. Skin: no rashes, warm and dry normal turgor Neurologic: PERRL, EOMI, accommodation nl, no face palsy, no dysarthria CN's II- XI intact bilaterally and moves all extremities Psychiatric: A+Ox3, euthymic affect Principal Diagnosis Peripheral artery disease Discharge Exam General: Lying comfortably in bed, not in distress, on room air HEENT: EOMI, RALPH, MMM Chest: Clear breath sounds bilaterally, no wheezes or crackles CVS: Regular rate and rhythm, normal heart sounds, no murmur Abdomen: Soft, non tender, not distended, normal bowel sounds Neuro: Awake, alert, oriented, conversing well, non focal Extremities: No cyanosis, clubbing or edema Discharge Data Allergies Allergy/AdvReac Type Severity Reaction Status Date / Time No Known Allergies Allergy Mild Verified 02/10/24 14:27 Consultations 02/10/24 14:14 Consult Vascular Surgery Stat 02/10/24 14:15 ED Decision to Admit Stat Ordered Studies 02/10/24 12:48 US arterial duplex LE RT Stat US venous doppler LE RT Stat 02/11/24 11:47 CTA LE RT w and wo if don [CT angio LE RT w inc wo if don] Routine Laboratory Results WBC 7.72 K/ul (4.8-10.8) 02/11/24 05:38 RBC 5.20 M/uL (4.70-6.10) 02/11/24 05:38 Hgb 15.1 g/dl (14.0-18.0) 02/11/24 05:38 Hct 44.9 % (42.0-52.0) 02/11/24 05:38 MCV 86.3 fL (80.0-100.0) 02/11/24 05:38 MCH 29.0 pg (25.0-34.0) 02/11/24 05:38 MCHC 33.6 g/dL (32.0-36.0) 02/11/24 05:38 RDW Std Deviation 42.3 fL (36.4-46.3) 02/11/24 05:38 RDW Coeff of Kristen 13.4 % (11.5-14.5) 02/11/24 05:38 Plt Count 239 K/uL (130-400) 02/11/24 05:38 MPV 10.6 fL (9.4-12.4) 02/11/24 05:38 Immature Gran % (Auto) 0.3 % 02/10/24 12:50 Neut % (Auto) 65.9 % 02/10/24 12:50 Lymph % (Auto) 23.5 % 02/10/24 12:50 Pepin % (Auto) 7.5 % 02/10/24 12:50 Eos % (Auto) 1.6 % 02/10/24 12:50 Baso % (Auto) 1.2 % 02/10/24 12:50 Neut # (Auto) 6.14 K/uL (1.40-6.50) 02/10/24 12:50 Lymph # (Auto) 2.19 K/uL (1.20-3.40) 02/10/24 12:50 Pepin # (Auto) 0.70 K/uL (0.11-0.59) H 02/10/24 12:50 Eos # (Auto) 0.15 K/uL (0.00-0.50) 02/10/24 12:50 Baso # (Auto) 0.11 K/uL (0.00-0.20) 02/10/24 12:50 Immature Gran # (Auto) 0.03 K/uL (0.01-0.20) 02/10/24 12:50 PT 12.1 Seconds (9.0-12.0) H 02/11/24 05:38 INR 1.1 (0.9-1.1) 02/11/24 05:38 Heparin Anti-Xa, Unfract 0.43 IU/ml (0.3-0.7) 02/11/24 05:38 Sodium 138 mmol/L (136-145) 02/11/24 05:38 Potassium 4.3 mmol/L (3.5-5.1) 02/11/24 05:38 Chloride 105 mmol/L (98-107) 02/11/24 05:38 Carbon Dioxide 27 mmol/L (21-32) 02/11/24 05:38 Anion Gap 6 (3-11) 02/11/24 05:38 BUN 20 mg/dl (6-23) 02/11/24 05:38 Creatinine 0.93 mg/dl (0.6-1.4) 02/11/24 05:38 Est Cr Clr Drug Dosing 71.3 ml/min 02/11/24 05:38 Est GFR ( Amer) 95.4 ml/min 02/11/24 05:38 Est GFR (Non-Af Amer) 82.3 ml/min 02/11/24 05:38 BUN/Creatinine Ratio 21.5 (10-20) H 02/11/24 05:38 Glucose 95 mg/dl (70-99(Fasting)) 02/11/24 05:38 Calcium 9.6 mg/dl (8.6-10.3) 02/11/24 05:38 Total Bilirubin 1.0 mg/dl (0.2-1.0) 02/11/24 05:38 AST 13 U/L (13-39) 02/11/24 05:38 ALT 11 U/L (7-52) 02/11/24 05:38 Alkaline Phosphatase 101 U/L (34-104) 02/11/24 05:38 Total Protein 7.0 gm/dl (6.0-8.3) 02/11/24 05:38 Albumin 4.0 gm/dl (3.4-5.0) 02/11/24 05:38 Globulin 3.0 gm/dl (2.5-4.0) 02/11/24 05:38 Albumin/Globulin Ratio 1.3 (0.9-2) 02/11/24 05:38 Triglycerides 67 mg/dl (0-150) 02/11/24 05:38 Cholesterol 138 mg/dl (0-200) 02/11/24 05:38 LDL Cholesterol, Calc 72 mg/dl 02/11/24 05:38 VLDL Cholesterol, Calc 13 mg/dl (0-30) 02/11/24 05:38 HDL Cholesterol 53 mg/dl 02/11/24 05:38 Cholesterol/HDL Ratio 2.6 (0-5) 02/11/24 05:38 Impressions Duplex Scan Lower Extremity Artery 02/10/24 12:48 US arterial duplex LE RT HISTORY: 73 years-old Male ? clot peripheral arterial disease with lower extremity pain COMPARISON: Duplex venous Doppler study of same day TECHNIQUE: Multiple real-time sonographic images of the right lower remedy arterial structures were obtained assessing grayscale appearance, color and spectral flow FINDINGS: There is at least moderate atherosclerosis. Patent mostly biphasic waveforms of the thigh. There is occlusion of the mid to distal aspect of the popliteal artery. There is monophasic waveforms within the patent posterior tibial, anterior tibial, peroneal and dorsalis pedis arteries with areas of spectral broadening and diminished flow with peak systolic velocities in the peroneal artery measuring 7 cm/s. IMPRESSION: 1. Atherosclerosis with age-indeterminate occlusion of the right popliteal artery. 2. Blunted monophasic waveforms within the lower leg arteries. ACT 112: Negative or not required by law. The above report was generated using voice recognition software. It may contain grammatical, syntax or spelling errors. Electronically signed by: James March M.D. 02/10/2024 1:56 PM Venous Doppler Study 02/10/24 12:48 RIGHT LOWER EXTREMITY VENOUS DOPPLER HISTORY: Right leg pain. COMPARISON STUDY: None. FINDINGS: There is normal compressibility, flow, and augmentation within the right lower extremity deep venous system. IMPRESSION: No DVT within the right lower extremity ACT 112: Negative or not required by law. Electronically signed by: Anil Medellin M.D. 02/10/2024 1:48 PM Lower Extremity CTA 02/11/24 11:47 CT angio LE RT w inc wo if don HISTORY: 73 years-old Male popliteal artery occlusion Follow-up study in a patient with right lower extremity pain and age-indeterminate occlusion of the popliteal artery. COMPARISON: Duplex venous Doppler 02/10/2024 TECHNIQUE: CTA of the right lower extremity was obtained with IV contrast. 3-D coronal and sagittal MIPs were obtained and submitted for review. All measurements were obtained according to NASCET criteria. A dose lowering technique was used consistent with the principals of ROSS. FINDINGS: CTA: There is occlusion of the imaged right external iliac artery with reconstitution of flow within the right common femoral artery via the inferior epigastric and collateral flow via branches of the patent right internal iliac artery. There is approximately 50% stenosis within the common femoral artery secondary to atherosclerotic plaque. Patent superficial femoral and profunda femoris arteries. 8.7 cm segment of occlusion involves the popliteal artery extending into the tibioperoneal trunk. There is reconstitution of flow within the upper calf with patent anterior tibial, posterior tibial and peroneal arteries demonstrating mostly mild multifocal stenosis. High-grade stenosis is noted involving the distal posterior tibial artery. CT: No acute intrapelvic abnormality. Urinary bladder wall thickening with partial distention. Colonic diverticulosis. Prostatomegaly. There is no lymphadenopathy. Unremarkable appearance of the musculature. No acute fracture. IMPRESSION: 1. Complete occlusion of the imaged right external iliac artery with reconstitution of flow within the common femoral artery. 2. Several centimeter segment of occlusion involves the popliteal artery extending into the tibioperoneal trunk. Flow is noted within the anterior tibial, posterior tibial and peroneal arteries. 3. High-grade stenosis of the distal posterior tibial artery. ACT 112: Negative or not required by law. The above report was generated using voice recognition software. It may contain grammatical, syntax or spelling errors. Dictated: 02/11/2024 1:58 PM Transcribed: 02/11/2024 2:47 PM Mansi [id number] [email or web address] [id number] Electronically signed by: James March M.D. 02/11/2024 2:53 PM Hospital Course (1) HTN (hypertension): (2) HLD (hyperlipidemia): (3) Prostate cancer: (4) Tobacco use disorder: (5) Gastroesophageal reflux: Plan Mr. Heard is a 73 year old male that presents to the ED with right leg pain and admitted for PAD with antiplatelet and heparin drip per vascular recommendations. Patient was seen by vascular surgery. His symptoms are completely resolved. Per vascualar surgery- "Pt with moderate PAD and R pop occlusion, which appears chronic. His R foot is warm and well perfused, and while his RLE pulses are not palpable, they are easily dopplerable. He has no foot pain or numbness to indicate acute ischemia. His sx of intermittent R calf "tightness" which is not exertional are inconsistent with RLE claudication. Pt discussed at length with Dr Fox, recommends pt be reeval in office in 2 weeks. Recommend pt be on 81mg ASA and plavix at d/c. Pt advised to call if he develops any worsening sx. Pt agreeable to this plan. His family member was also present for the discussion". CTA RLE was done. I spoke with Dr Fox after the results were available. No new recommendations and recommended OP follow up as stated before. Patient is anxious to go home. PAD: Arterial Duplex Scan revealed Atherosclerosis with age-indeterminate occlusion of the right popliteal artery. Blunted monophasic waveforms within the lower leg arteries. Venous Duplex scan negative for DVT Echo reviewed CTA RLE noted as above S/p heparin drip, aspirin, statin. Lipid panel reviewed Discussed with Dr Fox prior to discharge- no acute interventions but OP follow up in 2 weeks. Recommended to continue DAPT and statin. Recommended to quit smoking HTN: BP stable, continue losartan, amlodipine Ongoing tobacco use: Smoking 1/2 pack cigarettes per day. Recommended quitting H/O Prostate Cancer 2019: S/P Lupron therapy x 18 months + Radx Follows with Urology; no prostatectomy Last PSA 0.18 Total Time Total Time Spent Total Time Spent (In Minutes): 40 Discharge Plan Discharge Items Patient Disposition: Home - Self-Care Reason For Visit: R LEG PAIN Discharge Diagnosis: Peripheral artery disease Activity: Resume your previous activity Non-emergency contact: Primary Care Provider Call non-emergency contact if: you have any medication questions, your symptoms worsen and your pain is concerning for you Follow-up/Referrals: Elmer Durbin MD [Primary Care Provider] - (Date & Time 02/18/2024 11:00 AM Provider [facility], Department General Internal Medicine [facility] ) Shelton Fox MD [Physician] - (follow up in 2 weeks) Diet: Heart Healthy Addtl Attending Provider Instructions: Continue aspirin/plavix and statin per vascular and see them in the office in the next 2 weeks. Continue prilosec daily while on aspirin/plavix Please come back to the emergency if recurrence of the symptoms Please stop smoking Pending Studies at Discharge: No Stand-Alone Forms: My [facility], Smoking Cessation Medications and DC Order Prescriptions: New aspirin 81 mg Tablet,Delayed Release (Dr/Ec) 81 mg PO DAILY Qty: 30 0RF clopidogrel [Plavix] 75 mg tablet 75 mg PO DAILY Qty: 30 0RF atorvastatin [Lipitor] 10 mg tablet 10 mg PO DAILY Qty: 30 0RF Continued losartan 50 mg Tablet 100 mg PO DAILY amlodipine 10 mg Tablet 10 mg PO DAILY cyanocobalamin (vitamin B-12) [Vitamin B-12] 1,000 mcg Tablet 1,000 mcg PO DAILY cholecalciferol (vitamin D3) [Vitamin D3] 25 mcg (1,000 unit) Tablet,Chewable 25 mcg PO DAILY omeprazole 20 mg Tablet,Delayed Release (Dr/Ec) 20 mg PO DAILY Qty: 30 0RF Rx Instructions: take everyday while on aspirin and plavix Discharge Orders: Discharge Order (Routine); Ordered 02/11/24 Ordered By: William Rodríguez Admission Data Admit Date/Time: 02/10/24 14:53 Attending Provider: William Rodríguez Admit Provider: Juan F Bullard Primary Care Provider: Elmer Durbin Other Providers: Shelton Fox; Juan F Bullard
[2024-02-11 16:55] VITALS: BP 149/85
== END 2024-02-11 17:40 | disposition home or self-care (01) | DRG 301 ==
LOC: ED 12:12 → 2E 14:53 → SUATTDRO 14:53 → 2E 15:50